=== PATIENT | male | born 1965 | race Caucasian/White ===

== ENCOUNTER 2016-09-19 07:59 | Observation (INO) | payer BC ==
--- NOTE | 2016-09-19 08:41 | RAD ---
Indication: Chest pain, fever. Nonsmoker. Comparison: June 16, 2016 Technique: Upright AP 0812 hours Report: Clear lungs and pleural spaces. Negative for pneumothorax. The heart, pulmonary vasculature, and mediastinal contours are unremarkable. Unremarkable osseous structures and soft tissue contours. IMPRESSION: No evidence for acute intrathoracic disease.
[2016-09-19] MEDS ORDERED: Nitroglycerin TAB 0.4 MG* 0.4 MG TAB SL ONE (09:08)
[2016-09-19] MEDS ORDERED: Aspirin Low Dose CHEW TAB* 81 MG PO ONE (09:08)
[2016-09-19] MEDS ORDERED: Ondansetron INJ* 2 MG/ML VIAL IV ONE ×2 (09:09→10:57)
[2016-09-19] MEDS ORDERED: NS 0.9% 1000 ML* 1,000 ML IV ONE (09:09)
[2016-09-19 09:16] LABS: Hematocrit 42 % (42-52); Hemoglobin 14.2 g/dl (14.0-18.0); Mean Corpuscular HGB Conc 34 g/dl (31-36); Mean Corpuscular Hemoglobin 32 pg (27-31); Mean Corpuscular Volume 92 fL (80-94); Mean Platelet Volume 8 um3 (7.4-10.4); Red Blood Count 4.51 10^6/ul (4.0-5.4); Red Cell Distribution Width 13 % (10.5-15); White Blood Count 7.5 10^3/ul (3.5-10.8)
[2016-09-19 09:21] LABS: Add Diff/Slide Review? Slide Review Added; Comments Flag Yes
[2016-09-19 09:26] LABS: Albumin 3.7 g/dL (3.2-5.2); BUN/Creatinine Ratio 16.5 (8-20); Calcium 8.4 mg/dL (8.6-10.3); EGFR African American 92.1 (>60); EGFR Non-African American 71.6 (>60); Globulin 2.5 g/dL (2-4); Magnesium 1.7 mg/dL (1.9-2.7); Total Bilirubin 0.7 mg/dL (0.2-1.0); Total Protein 6.2 g/dL (6.4-8.9)
[2016-09-19 09:28] LABS: Potassium 3.6 mmol/L (3.5-5.0)
[2016-09-19 09:58] LABS: T4 6.84 mcg/mL (6.09-12.23)
[2016-09-19] MEDS ORDERED: Magnesium Sulfate 1 GM IV* 1 GM/100 ML BAG IV ONE ×2 (09:58→15:00)
[2016-09-19 09:59] LABS: TSH (Thyroid Stimulating Horm) 2.18 mcIU/mL (0.34-5.60)
[2016-09-19 10:40] LABS: Troponin I 0.01 ng/mL (<0.04)
[2016-09-19] MEDS ORDERED: Ondansetron INJ* 2 MG/ML VIAL ONE (10:55)
[2016-09-19 11:00] LABS: Urine Bilirubin Negative (Negative); Urine Glucose Negative (Negative); Urine Nitrite Negative (Negative)
[2016-09-19] MEDS ORDERED: Pantoprazole IV* 40 MG IV ONE (11:00)
[2016-09-19] MEDS ORDERED: Iohexol 350* (CONTRAST) 500 ML MDV IV ONE (11:09)
[2016-09-19 11:24] LABS: Troponin I 0.01 ng/mL (<0.04)
--- NOTE | 2016-09-19 11:40 | RAD ---
HISTORY: Shortness of breath, nausea and vomiting COMPARISONS: None TECHNIQUE: Multiple contiguous axial CT scans of the chest were obtained after the administration of nonionic intravenous contrast, timed to the pulmonary arterial phase of contrast enhancement.. Coronal and sagittal multiplanar reformations are also submitted for review. FINDINGS: NECK AND THYROID: The lower neck and thyroid are unremarkable. CHEST WALL: There is no lower cervical, axillary, or supraclavicular lymphadenopathy by size criteria. HEART AND PERICARDIUM: The heart is unremarkable. AORTA AND PULMONARY VASCULATURE: There is no pulmonary arterial filling defect to suggest pulmonary embolism. There is no linear filling defect within the aorta to suggest aortic dissection. MEDIASTINUM: There is no mediastinal lymphadenopathy by size criteria. JIM: There is no hilar lymphadenopathy by size criteria. AIRWAY AND ESOPHAGUS: The airway is unremarkable, without endobronchial filling defect. The esophagus is grossly normal. LUNG PARENCHYMA: The lungs are clear. PLEURA: No pleural abnormalities are noted. UPPER ABDOMEN: The upper abdomen is unremarkable. BONES AND SOFT TISSUES: No bone or soft tissue abnormalities are noted. OTHER: None. IMPRESSION: NO PULMONARY ARTERIAL FILLING DEFECTS TO SUGGEST PULMONARY EMBOLISM
[2016-09-19] MEDS ORDERED: Perflutren Lipid Microsphere* 3 ML VIAL ONE (11:56)
[2016-09-19] MEDS ORDERED: fentaNYL* 50 MCG/ML 2 ML VIAL (100 MCG VIAL) ONE (12:40)
[2016-09-19] MEDS ORDERED: Midazolam* 1 MG/ML 5 ML VIAL (5 MG) ONE (12:40)
[2016-09-19] MEDS ORDERED: Iohexol 350 (CONTRAST) 200 ML MDV IV ONE (12:40)
[2016-09-19] MEDS ORDERED: Heparin 2 UNITS/ML IVPREMIX* 3,000 ML IV ONE (12:40)
[2016-09-19] MEDS ORDERED: Lidocaine 1% INJ* 10 MG/ML 30 ML SDV ONE (12:40)
--- NOTE | 2016-09-19 12:48 | ED ---
Main Wilkins Auryana, scribed for Thuan Vicente MD on 09/19/16 at 0913 . HPI Chest Pain - HPI Summary HPI Summary: 51 year old male BIBA with chest pain and nausea starting at 04:30 this morning. The chest pain is located on the lower right side of the chest. He reports that he also feels disoriented, and en route was lightheaded and vomited. BASE REMOVER NTG. States SOB - reports normal for him. He reports that he did drink alcohol last night - 8x vodka cranberry. He denies any syncope, adominal pain, any chest pain currently, or any diarrhea (but states that it is not normal BM). PMHx is significant for GERD, COPD, bronchiectasis, asthma, and Sjogrens syndrome. - History of Current Complaint Chief Complaint: EDAbdPain Time Seen by Provider: 09/19/16 08:01 Onset/Duration: Started Hours Ago - at 04:30, Still Present Time of Onset: 04:30 Timing: Constant Initial Severity: Mild Current Severity: None Pain Intensity: 0 - reports no CP on arrival Pain Scale Used: 0-10 Numeric Chest Pain Location: Discrete at: - lower right chest Alleviating Factor(s): NTG 123 - 1 NTG EN ROUTE BASE REMOVER Associated Signs and Symptoms: Positive: Shortness of Breath - normal per patient, Lightheadedness, Vomiting, Other: - disoriented, no diarrhea - but reports that BM wasn't normal. Negative: Chest Pain - NONE CURRENTLY, Syncope, Fever, Abdominal Pain - Allergy/Home Medications Allergies/Adverse Reactions: Allergies Allergy/AdvReac Type Severity Reaction Status Date / Time No Known Allergies Allergy Verified 10/06/15 15:00 Home Medications: Home Medications Benzonatate CAP* [Tessalon 100 MG CAP*] 100 mg PO TID 09/19/16 [History Confirmed 09/19/16] Budesonide/Formote 160/4.5(NF) [Symbicort 160/4.5 (NF)] 2 puff INH BID 09/19/16 [History Confirmed 09/19/16] Cholecalciferol [Vitamin D] 5,000 unit PO DAILY 09/19/16 [History Confirmed ] Esomeprazole(NF) [NexIUM(NF)] 40 mg PO DAILY 09/19/16 [History Confirmed ] azaTHIOprine TAB(*) [Imuran TAB(*)] 50 mg PO DAILY 09/19/16 [History Confirmed 09/19/16] predniSONE TAB* [Deltasone TAB*] 20 mg PO DAILY 09/19/16 [History Confirmed ] PMH/Surg Hx/FS Hx/Imm Hx Previously Healthy: No - sjogrens Respiratory History: Reports: Hx Asthma, Hx Chronic Obstructive Pulmonary Disease (COPD), Other Respiratory Problems/Disorders - bronchiectasis GI History: Reports: Hx Gastroesophageal Reflux Disease Infectious Disease History: No Infectious Disease History: Denies: Traveled Outside the [place] in Last 30 Days - Family History Known Family History: Positive: Other - fibromyalgia and cancer - Social History Occupation: Employed Full-time Lives: Alone Alcohol Use: Occasionally Alcohol Amount: 8x cocktails Substance Use Type: Reports: None Hx Tobacco Use: Yes Review of Systems Positive: Other - DISORIENTED, LIGHTHEADEDNESS. Negative: Fever Eyes: Negative ENT: Negative Positive: Chest Pain Positive: Shortness Of Breath Positive: Vomiting - X1 Genitourinary: Negative Musculoskeletal: Negative Skin: Negative Neurological: Negative Psychological: Normal All Other Systems Reviewed And Are Negative: Yes Physical Exam - Summary Physical Exam Summary: VITAL SIGNS: Reviewed. GENERAL: ~Patient is a well developed and nourished male who is lying comfortable in the stretcher. ~Patient is not in any acute respiratory distress. HEAD AND FACE: No signs of trauma. ~No ecchymosis, hematomas or skull depressions. No sinus tenderness. EYES: PERRLA, EOMI x 2, No injected conjunctiva, no nystagmus. EARS: Hearing grossly intact. Ear canals and tympanic membranes are within normal limits. MOUTH: Oropharynx within normal limits. NECK: Supple, trachea is midline, no adenopathy, no JVD, no carotid bruit, no c- spine tenderness, neck with full ROM. CHEST: Symmetric, no tenderness at palpation LUNGS: Clear to auscultation bilaterally. No wheezing or crackles. CVS: Regular rate and rhythm, S1 and S2 present, no murmurs or gallops appreciated. ABDOMEN: Soft, non-tender. No signs of distention. No rebound no guarding, and no masses palpated. Bowel sounds are normal. EXTREMITIES: FROM in all major joints, no edema, no cyanosis or clubbing. NEURO: Alert and oriented x 3. No acute neurological deficits. Speech is normal and follows commands. SKIN: clammy and warm Triage Information Reviewed: Yes Vital Signs On Initial Exam: Initial Vitals Temp Pulse Resp BP Pulse Ox 98.5 F 92 21 139/90 95 09/19/16 07:59 09/19/16 07:59 09/19/16 07:59 09/19/16 07:59 09/19/16 07:59 Vital Signs Reviewed: Yes Diagnostics - Vital Signs Vital Signs Temp Pulse Resp BP Pulse Ox 09/19/16 08:30 88 20 144/75 96 09/19/16 08:11 86 18 150/78 96 09/19/16 08:05 91 17 95 09/19/16 08:01 98.5 F 83 19 139/90 95 09/19/16 07:59 98.5 F 92 21 139/90 95 - Laboratory Lab Results: Lab Results 09/19/16 Range/Units 08:26 INR (Anticoag Therapy) 0.86 L (0.89-1.11) Result Diagrams: 09/19/16 09:05 09/19/16 08:26 Lab Statement: Any lab studies that have been ordered have been reviewed, and results considered in the medical decision making process. - Radiology CXR Xray Interpretation: No Acute Changes Radiology Interpretation Completed By: Radiologist - CT CHEST/THORAX CTA CT Interpretation: No Acute Changes - IMPRESSION: NO PULMONARY ARTERIAL FILLING DEFECTS TO SUGGEST PULMONARY EMBOLISM CT Interpretation Completed By: Radiologist - EKG 07:56 EKG Interpretation: NSR @ 84 BPM, NO ST ELEVATION 09:01 EKG Interpretation: NSR @ 89 BPM, NO ST ELEVATION 11:01 EKG Interpretation: sinus tachycardia @103 BPM, unchanged from previous 2 EKGs Chest Pain Course/Dx - Course Course Of Treatment: 51 year old male BIBA with chest pain and nausea starting at 04:30 this morning. The chest pain is located on the lower right side of the chest. He reports that he also feels disoriented, and en route was lightheaded and vomited. BASE REMOVER NTG. States SOB - reports normal for him. He reports that he did drink alcohol last night - 8x vodka cranberry. He denies any syncope, adominal pain, any chest pain currently, or any diarrhea (but states that it is not normal BM). PMHx is significant for GERD, COPD, bronchiectasis, asthma, and Sjogrens syndrome. Assessment/Plan: Test results WNL except: lactic 2.1, calcium 8.4, Mg 1.7, troponin #1 0.01, troponin #2 0.01. UA is negative for U.T.I. Chest CT: IMPRESSION: NO PULMONARY ARTERIAL FILLING DEFECTS TO SUGGEST PULMONARY EMBOLISM. CXR: NAD. EKG: overall EKG similar but no ST. Ischemia in the lateral leads, ii, ii, aVf, V4, V5, V6. In the EMS course, patient came in having NTG and CP subsided. He does not complain of any CP since arrival. He does not complain of SOB, worse than his usual. However, I decided to do a chest CT to r/o PE, because has comorbidity of sjogrens and bronchiectasis. The chest CT did not show a PE, therefore since the patient is still having N/V and occasionally becomes clammy and diaphoretic, I discussed case with Dr. Oleary from cardiology. He did a bedside echo and thinks patient has hypo- kinesis of the ventricle. At this point - he decided to take the patient to the bed laborer. Patient is still hemodynamically stable and A&O x3. - Chest Pain Differential Diagnosis/HQI/PQRI: Acute CA, ACS, Angina, CHF, Chest Wall, GI Disease, Pulmonary Edema, Pulmonary Embolism - Diagnoses Provider Diagnoses: Ventricular hypokinesis, Vomiting, Chest pain - Provider Notifications Discussed Care Of Patient With: DR. OLEARY Time Discussed With Above Provider: 11:10 - recommends an Echocardiogram and agrees that there is no ST elevations - then admission to cardiac bed laborer Discharge - Discharge Plan Condition: Stable Disposition: ADMITTED TO [facility] Referrals: Bonifacio Wilson DO [Primary Care Provider] - The documentation as recorded by the Main lópez Auryana accurately reflects the service I personally performed and the decisions made by me, Thuan Vicente MD.
[2016-09-19] MEDS ORDERED: NS 0.9% 1000 ML* 1,000 ML IV SCH ×2 (13:15→15:50)
--- NOTE | 2016-09-19 13:29 | ECHO ---
Patient: SANTIAGO CABA [facility] Rec#: [id number] : 1965 Date: 09/19/2016 Age: 51y Height: 172.72 cm / 68.0 in Weight: 74.84 kg / 164.9 lbs Sex: M BSA: 1.88 Room#: [facility] Admit Date#: 09/19/2016 Type: Inpatient Referring: Christian Oleary MD Reading: Christian Oleary MD Electric Stove Installer: Nikki Mcbride KHOI CC: Lewis Mata MD Transthoracic Echocardiogram Indication: CP BP: 136/74 HR: 102 Rhythm: Tachycardia Findings History: Sjogren's,GERD,bronchiectasis,COPD. Technical Comments: The study is technically limited due to the patient's history of COPD. Completed at 1246. Left Ventricle: The left ventricular chamber size is normal. There is normal left ventricular systolic function.Overall pood endocardial images even with echo enhancement. Possible lateral wall hypokinesis The estimated ejection fraction is 50-55%. Left Atrium: The left atrial chamber size is normal. Right Ventricle: The right ventricular cavity size is normal. Right Atrium: The right atrial cavity size is normal. Aortic Valve: The aortic valve structure is not well visualized. Mitral Valve: The mitral valve structure is not well visualized. Tricuspid Valve: The tricuspid valve structure is not well visualized. Pulmonic Valve: The pulmonic valve structure is not well visualized. Pericardium: A left pleural effusion is present. There is a moderate pleural effusion. Aorta: There is no dilatation of the ascending aorta. The aortic arch is not well visualized. There is no dilation of the aortic root. Pulmonary Artery: The main pulmonary artery is not well visualized. Venous: The venous system is not well visualized. Contrast: Intravenous contrast was used to enhance endocardial border definition.6 ml utilized. Conclusions The left ventricular chamber size is normal. There is normal left ventricular systolic function.Overall pood endocardial images even with echo enhancement. Possible lateral wall hypokinesis The estimated ejection fraction is 50-55%. The right ventricular cavity size is normal. A left pleural effusion is present. There is no dilatation of the ascending aorta. Measurements Name Value Normal Range RVIDd (AP) 2D 2.7 cm (0.9 - 2.6) IVSd (2D) 0.8 cm (0.6 - 1) LVPWd (2D) 0.8 cm (0.6 - 1) LVIDd (2D) 3.1 cm (3.6 - 5.4) LVIDs (2D) 1.8 cm - LV FS (2D) 42 % (25 - 45) Aortic Annulus 0.8 cm (1.4 - 2.6) Ao root diameter (2D) 3.1 cm (2.1 - 3.5) Ascending Ao 2.9 cm (2.1 - 3.4) Name Value Normal Range PV Vmax 1.1 m/sec - PV peak gradient 4.65 mmHg -
[2016-09-19] MEDS ORDERED: Acetaminophen TAB* 325 MG PO ONE (13:30)
[2016-09-19] MEDS ORDERED: Acetaminophen TAB* 325 MG ONE (13:31)
[2016-09-19] MEDS ORDERED: NS 0.9% 1000 ML* 2,000 ML IV ONE (13:52)
[2016-09-19] MEDS ORDERED: Ondansetron INJ* 2 MG/ML VIAL IV PRN (13:52)
[2016-09-19] MEDS ORDERED: Albuterol 2.5 MG/3 ML NEB.SOL* (0.083%) INH PRN (14:20)
[2016-09-19] MEDS ORDERED: LORazepam TAB(*) 1 MG PO SCH (15:00)
[2016-09-19] MEDS: Hydrocortisone INJ* 100 MG VIAL IV SCH ×2 (15:04→21:45)
[2016-09-19] MEDS: KCL 10 MEQ/50 ML IVPREMIX* 10 MEQ/50 ML BAG IV SCH ×3 (15:05→20:25)
--- NOTE | 2016-09-19 15:21 | RAD ---
HISTORY: Fever, nausea and vomiting COMPARISONS: Same day CT of the chest that partially includes the right upper quadrant TECHNIQUE: Multiple transverse and longitudinal ultrasound images were obtained of the right upper quadrant. FINDINGS: LIVER: The liver exhibits homogenous increased echogenicity. The liver is top normal measuring up to 19 cm in greatest dimension. There are no suspicious lesions or masses. Normal hepatic and portal venous blood flow is duplicated with color flow imaging. There is no gross intrahepatic biliary duct dilatation. GALLBLADDER AND EXTRAHEPATIC BILIARY DUCT: The gallbladder is normal in appearance without intraluminal stones or other soft tissue masses. There is no pericholecystic fluid or gallbladder wall thickening. The common bile duct measures a maximum diameter of 4 mm. PANCREAS: The portions of the pancreas not obscured by bowel gas are normal in appearance. RIGHT KIDNEY: The right kidney is normal in size, morphology and echogenicity. AORTA AND IVC: The visualized proximal portions are normal in appearance and not pathologically dilated. IMPRESSION: 1. NO SONOGRAPHIC EVIDENCE OF ACUTE CHOLECYSTITIS OR BILIARY OBSTRUCTION. 2. HOMOGENOUS INCREASED ECHOGENICITY LIVER COULD BE SEEN WITH HEPATIC STEATOSIS OR OTHER INFILTRATIVE DISEASE.
--- NOTE | 2016-09-19 15:34 | CONS ---
CARDIOLOGY CONSULTATION: DATE OF CONSULT: 09/19/16. INDICATION FOR CONSULTATION: Chest pain, nausea, and abnormal EKG. HISTORY OF PRESENT ILLNESS: The patient is a 51-year-old gentleman with a history of Sjogren's syndrome. He is on chronic immune suppressive medications. The patient states that he was feeling well yesterday. However, this morning he woke up and was feeling short of breath and nauseous. He says "I just have an overwhelming sense of unwellness." The patient says he is anxious. He just does not feel right. He has some mild chest pain, but mostly his complaint is nausea. The patient came to the emergency room with these complaints. His initial EKG shows normal sinus rhythm with diffuse T-wave inversions in leads 2, 3, aVF, V4 through V6. No clear evidence of ST segment elevation. The patient underwent a CT angiogram of his chest. There is no evidence of pulmonary embolism. No evidence of consolidation in his lungs. The patient had an echocardiogram with poor images. The images were enhanced with definity, which showed a suggestion of a lateral wall hypokinesis. Again, the images were not well visualized. There is no significant valvular abnormalities. Because of his acute presentation, abnormal EKG, and suggestions of lateral wall ischemia, it is my recommendation the patient undergo cardiac catheterization. PAST MEDICAL HISTORY: Significant for Sjogren's syndrome. PAST SURGICAL HISTORY: None. OUTPATIENT MEDICATIONS: 1. Prednisone 20 mg a day. 2. Omeprazole 40 mg a day. 3. Tessalon tablets 100 mg 3 times a day. 4. Imuran 50 mg a day. 5. Symbicort inhaler. 6. Vitamin D. ALLERGIES: No known drug allergies. SOCIAL HISTORY: He is not . He denies tobacco or alcohol use. He does not get regular exercise. The patient was scheduled to go to [facility] for a lung biopsy for further evaluation of his Sjogren's syndrome. PHYSICAL EXAM: Vital Signs: Height is 5 feet 10 inches, weight is 165 pounds, blood pressure 128/73, heart rate is 107, oxygen saturation 99% on 3 L. Temperature initially was 98.5, it is currently 101.2. Sclerae anicteric. Oropharynx is pink without erythema. Carotids are 2+ without bruits. JVD is normal. Thyroid is normal. Cardiac exam, S1 and S2 without any murmurs, rubs, or gallops. Lungs are clear to auscultation bilaterally. No dullness to percussion. Abdomen is soft, nontender, nondistended with normal active bowel sounds. Extremities show no edema. He has 2+ pulses throughout. The patient is awake, alert, and oriented. He moves all 4 extremities equally. DIAGNOSTIC STUDIES/LAB DATA: CBC within normal limits. Chemistry is within normal limits. Initial troponin 0.01, second troponin 0.01. Potassium level 3.6, BUN 18, creatinine 1.09, TSH 2.18. IMPRESSION: This is a 51-year-old gentleman with a history of Sjogren's syndrome who presents with nausea, chest pain, and shortness of breath. His EKG shows diffuse T-wave inversions, which could be secondary to LVH. An echocardiogram today is very difficult to interpret, even with definity there is a suggestion of hypokinesis to the lateral wall, although it was not well visualized. Because of his acute presentation and markedly abnormal EKGs by recommendation, the patient will go to cardiac catheterization for definitive evaluation of his coronary arteries. The patient is willing to proceed. Risks and benefits were described in detail. CC: Dr. Mata* [id number]/[facility] #: [id number] TAMIA
[2016-09-19 15:36] LABS: Hematocrit 37 % (42-52); Hemoglobin 12.4 g/dl (14.0-18.0); Mean Corpuscular HGB Conc 34 g/dl (31-36); Mean Corpuscular Hemoglobin 32 pg (27-31); Mean Corpuscular Volume 93 fL (80-94); Mean Platelet Volume 8 um3 (7.4-10.4); Red Blood Count 3.94 10^6/ul (4.0-5.4); Red Cell Distribution Width 13 % (10.5-15); White Blood Count 5.5 10^3/ul (3.5-10.8)
[2016-09-19] MEDS: Acetaminophen TAB* 325 MG PO PRN ×2 (15:43→20:12)
[2016-09-19 16:05] LABS: EGFR African American 104.1 (>60)
[2016-09-19] MEDS: Heparin VIAL(*) 5000 UNITS/ML VIAL (FIVE THOUSAND) SUBCUT SCH ×2 (19:51→21:40)
--- NOTE | 2016-09-19 20:06 | CONSULT ---
Consult Consult: Mr. Dickson is a 51 year old man recently diagnosed with Sjogren's Syndrome and started on Imuran 50mg daily as a steroid sparing medication. He was admitted with chest pain and nausea; his symptoms have resolved. He may be having GI side effects of Imuran; per my discussion with ER attending today, it is being held. Would like to review all records. Will follow and check serologies.
[2016-09-19] MEDS: Mometasone/Formoter 200/5 MDI INH SCH (20:39)
--- NOTE | 2016-09-19 23:05 | RAD ---
CLINICAL HISTORY: Abdominal pain COMPARISON: None TECHNIQUE: Noncontrast CT examination of the abdomen and pelvis from the lung bases through the initial tuberosities. FINDINGS: VISUALIZED LUNG BASES: The visualized lung bases are grossly clear. There is no pleural effusion. ABDOMEN AND PELVIS: Evaluation of the solid organs and vasculature is limited without intravenous contrast. The liver, spleen, pancreas and adrenal glands are grossly normal in appearance. The gallbladder is normal. The kidneys are normal in appearance without focal mass, calcification or signs of hydronephrosis. The small and large bowel are not distended.The patient's normal appendix is identified in the right lower quadrant measuring 6 mm in diameter with a small amount of gas in the lumen (coronal image 57). There are rectosigmoid diverticula but the colon does not exhibit any acute inflammatory changes or pericolonic infiltration. There is no gross retroperitoneal or mesenteric lymphadenopathy. The pelvic viscera is normal in appearance. Bilateral fat-containing inguinal hernias are noted. The abdominal aorta and iliac arteries are normal in course and diameter. Degenerative changes include multilevel loss of intervertebral disc height involving the lower thoracic and lumbar spine.There are no sinister bone lesions. IMPRESSION: 1. Diverticulosis without acute inflammatory changes of the colon within the limitations of a noncontrast CT examination. 2. Additional chronic and degenerative changes described in body the report unlikely to BE related to the patient's indication for this CT.
--- NOTE | 2016-09-19 23:49 | HP ---
HISTORY AND PHYSICAL: DATE OF ADMISSION: 09/19/16 PRIMARY CARE PROVIDER: Lewis Mata MD CONSULTING AUTOMATIC DRY STARCH OPERATOR: Ivan Lopez MD CONSULTING INFECTIOUS DISEASE SPECIALIST: Jed Brush MD ATTENDING PHYSICIAN WHILE IN THE HOSPITAL: Marcus Lopez MD * (report dictated by Kale Mejia NP). CHIEF COMPLAINT: Not feeling well. HISTORY OF PRESENT ILLNESS: Mr. Dickson is a 51-year-old male patient, who has a working diagnosis in the outpatient setting of Sjogren disease disorder. 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 About a week ago, he was started on Imuran and for the last month, has been on a high dose of prednisone at 20 mg a day. He comes in today, he says the last night he drank more than what he normally does. He woke up at 4 a.m., he felt chills. He had 4 bowel movements within 20 minutes that were loose in nature. He says that he felt nauseous. He felt weak and tired. He felt little drowsy. He was not feeling himself. He says that yesterday, he felt well and denied having any runny nose, sore throat, cough, or any fevers that he knew of. He says that he just was not feeling well. He was not feeling himself. He was feeling little drowsy, so he decided to get in his car and come to the hospital. While in the car, he started getting confused. He was not really sure if he could make it. He said he was feeling again pretty sleepy and tired , so he pulled off on to the side of the road and called 911. He was brought into the ER ultimately with an ambulance. While in the ambulance, he had an episode where he was vomiting. He thinks that he may have passed out. He does not recall the event happened while he was vomiting. He says that he had a episode of right-sided chest pain and discomfort, so he decided to come into the hospital. He says that to his knowledge, he did not have any fevers. He says that he also has been noticing over the last week since taking the Imuran that he gets pain, particularly after taking the Imuran in his belly, he feels bloated, he feels distended. He says the pain is mostly in the epigastric area. He denies any pain currently, he just says he feels tired. He denies having any neck pain and he denies having any headaches recently. He says that he has been bringing up some green sputum at times after using a Neti Pot. He also did admit to having sexual relations with a male partner about 4 days ago, who is known HIV positive. He came into the ER, he was evaluated. He had an EKG that showed changes and there was concern, so he ultimately had a CTA, which was negative and he also had a heart catheterization, which was negative as well as for any obstructive coronary artery disease per verbal report. However, post cath, it was noted that he had a fever of 103 and we were asked to evaluate for admission. PAST MEDICAL HISTORY: Significant for: 1. COPD. 2. Asthma. 3. Sjogren. 4. GERD. 5. Bronchiectasis. 6. Peptic ulcer disease. PAST SURGICAL HISTORY: He had a cardiac catheterization today, but prior to this, he has not had any surgery. HOME MEDICATIONS: According to the list include: 1. Vitamin D 5000 units p.o. daily. 2. Prednisone 20 mg daily. 3. Nexium 40 mg daily. 4. Tessalon 100 mg p.o. t.i.d. 5. Imuran 50 mg p.o. daily. 6. Symbicort 2 puffs inhaled b.i.d. ALLERGIES TO MEDICATIONS: Include no known drug allergies. FAMILY HISTORY: His mother has a history of fibromyalgia and lupus. Father had a history of cancer. SOCIAL HISTORY: He is bisexual. He does drink 3 to 4 beers daily. He denied recreational drug abuse to me or smoking. Surrogate decision maker will be his mother. REVIEW OF SYSTEMS: There is documented fever now. He does admit to having chills. He does admit to having weight change of about 20 pounds he has gained over the last month. There is no double vision. He denies having any ear discharge. No rhinorrhea. No sore throat. No thyroid enlargement. He denies having any abdominal pain. He does admit to having an episode of nausea, vomiting, and diarrhea. He denies having any dysuria. He denied having any chest pain currently, he did have some on the way. There was a loss of consciousness. No pruritus. No skin ulcerations. Review of 14 systems completed. All others negative. PHYSICAL EXAMINATION GENERAL: At this time, Mr. Dickson is a 51-year-old male patient. He does not appear to be in any acute distress. He is sitting in the post cath stretcher. VITAL SIGNS: Reveal blood pressure 128/73, pulse of 107, respirations 17, O2 sat 94%, his temperature again in the post cath area was 103.1, it was not documented yet. HEENT: Head atraumatic and normocephalic. Eyes: EOMs are intact. Sclerae anicteric and not pale. Throat: Oral mucosa appeared to be dry. No oropharyngeal erythema. NECK: Supple. LUNGS: Clear to auscultation. No wheezes, rales, or rhonchi. HEART: Sounds S1, S2. Regular rate and rhythm. No murmurs, rubs, or gallops. ABDOMEN: Soft, it was mildly distended, it was tender in the epigastric area. Bowel sounds present. EXTREMITIES: Pulses were 2+ throughout. Again, no peripheral edema. The right groin was covered with the dressing and it was clean, dry and intact. NEUROLOGIC: He is awake, alert, oriented x3. His tongue is midline. [place] were equal. He had no gross focal deficits. SKIN: Intact with the exception there is a dressing to the right groin from a puncture site from the heart cath which was clean, dry and intact. DIAGNOSTIC STUDIES/LAB DATA: Labs today revealed a WBC of 7.5, RBC of 4.51, hemoglobin of 14.2, hematocrit of 42, and platelet count of 154. The INR was 0.86. Sodium was 138, potassium was 3.6, chloride of 102, bicarb 24, BUN 18, creatinine 1.09, glucose 97, lactic was 2.1, calcium 8.4, mag 1.7. Total bili 0.7, AST 18, ALT 20, alk phos 42. His CK was 37. His CK-MB 1.6. His troponin was 0, repeat troponin 0, albumin of 3.7. Amylase and lipase pending. TSH was normal. Urine was negative. He did have a chest thorax CTA, which revealed no pulmonary artery filling defects to suggest PE. He had several EKGs, most recently at 11 o'clock this morning, showed a sinus tachycardia with a rate of 103. He had ST depression noted in leads II, III and aVF and T-wave inversions in V5 and V6 along with II, III and aVF. When we reviewed that to the EKG done earlier in the morning, that is similar with the exception that the rate is faster now. He did have a chest x-ray obtained, which revealed no evidence of acute intrathoracic disease. He had an echocardiogram obtained today, which showed an EF of 50% to 55% and there was possible lateral wall hypokinesis. Again, heart catheterization was performed and again per verbal report from Dr. Oleary, there was no obstructive coronary lesions. Old medical records were reviewed. ASSESSMENT AND PLAN: Mr. Dickson is a 51-year-old male patient coming into the ER today, again with complaints of weakness, also having episode of syncope, nausea , vomiting, and diarrhea, and chest discomfort. Post catheterization today, he was noted to have fever of 103. We were asked to evaluate for admission. He will be admitted under inpatient status for: 1. Fever. Etiology is unclear. He has certainly been on Imuran, which can cause fever, it also can cause nausea, vomiting and abdominal discomfort and weakness according to the side effects on this medication. I will have Dr. Lopez evaluate the patient, although; however, he is immunocompromised. The patient is on Imuran and he has been on prednisone for a month. I think it is pertinent to go ahead and panculture him. I am checking amylase and lipase because of the vomiting and pain after eating meals. In addition to this, I would like to get a CT of the abdomen and pelvis without contrast. He has already had 2 dye loads today, so I am holding off. I also would like to get an ultrasound of the abdomen as well, get blood cultures and check a fluid swab. In addition to this, I am also going to check him for HIV and we will get a viral load and we will have Dr. Brush evaluate the patient. In the meantime, I going to give him 2 L fluid wide open and normal saline at 150, his EF is preserved. In addition to this, hold on antibiotics until a source is obvious. Obviously, if he decompensates, I will put him on broad- spectrum antibiotics. I am going to hold at this point until we know for sure what we are treating and I will continue to follow and monitor him closely. I am also checking a procalcitonin. 2. ETOH use. Again, he does states that he drinks on a daily basis and then last night he drank quite heavily, so I am going to put him on the [facility] protocol. We will replace the mag and the potassium as those were both on the low sides. 3. Lactic acidosis. Etiology is unclear. Certainly, it could be dehydration, he was 2.1, normal was 2. I am going to repeat this to make sure it is not trending up. If this is trending up, I would have a low threshold to go ahead and just put him on antibiotics. 4. History of Sjogren. Again, I am going to hold the Imuran as this can be certainly culprit of this. We will put him on stress dosed steroids in the setting of acute illness. He has been on prednisone 20 mg daily for the last month and again Dr. Lopez will be evaluating the patient and will continue to follow. I am going to try to get the records from his primary tank welder if possible. 5. Asthma and chronic obstructive pulmonary disease. We will continue p.r.n. albuterol and continue his Symbicort. 6. Bronchiectasis. Continue meds as prescribed. 7. Gastroesophageal reflux disease and peptic ulcer disease. Continue PPI therapy. Certainly, this could be the culprit of his abdominal pain, but it does not explain that fever, so again we will try to work this up. 8. DVT prophylaxis. He is high risk, he will be placed on heparin subcu. 9. Code status. Full code. 10. Fluid, electrolytes, and nutrition. Clear liquid diet. TIME SPENT: Time spent on this admission was approximately 70 minutes, greater than half the time was spent in [id number] with the patient, obtaining my history of physical; the other half time was spent going over the plan of care with the patient and implementing plan of care. I did discuss the plan of care with my attending, Dr. Lopez; he is in agreement. KALE MEJIA NP CC: Lewis Mata MD; Ivan Lopez MD; Jed Brush MD * [id number]/[facility] #: [id number] TAMIA
--- NOTE | 2016-09-20 04:07 | CONS ---
CONSULTATION REPORT: DATE OF CONSULT: 09/19/16 REASON FOR CONSULTATION: Evaluate for Sjogren syndrome and possible Imuran toxicity. HISTORY OF PRESENT ILLNESS: Mr. Dickson is a 51-year-old male with a newly diagnosed history of Sjogren syndrome. He has been on azathioprine which was recently added around the of this month. Prior to that he has been on chronic steroids. His primary manifestation has been a pulmonary one and I have been requesting outside records to verify and confirm his prior workup. He has been on chronic steroids for his symptoms and it was felt serologically that he had Sjogren syndrome. As noted above, he has been on chronic steroids and azathioprine was recently added to his regimen. He was admitted with feeling of nausea and of note he noted that when he took the azathioprine which is 50 mg daily, he also had recurrent nausea. He also complained of chest pain and abdominal discomfort. He had an angiogram of the chest which showed no evidence of pulmonary embolism with no consolidation. An echo suggested lateral wall hypokinesis. He underwent cardiac catheterization with Cardiology. An abdominal sonogram was also done which showed homogenous increased echogenicity of the liver and he had an abdominal pelvic CT, the results of which are pending. He currently feels well, but he reports that he did drink some alcohol the night prior to this admission. He currently denies any syncope, abdominal pain and denies any chest pain currently. He was given nitroglycerin en route. He does have chronic shortness of breath which has improved in the past with corticosteroids. In terms of his prior pulmonary evaluation, I do have notes from Dr. Newman who he saw in November 2014. He was felt at that time to have asthma as a cause of his shortness of breath. However , symptomatically he is very limited from his chronic shortness of breath. He is not able to even mow the lawn effectively or do regular activities because of the shortness of breath. 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 He has also had episodes in the past of syncope and presyncope, especially when exhaling in pulmonary function test devices. Of note, an ultrasound of the abdomen showed hepatic steatosis. In terms of his Sjogren syndrome, he has otherwise had some mildly dry eyes and dry mouth, but again his primary manifestation of Sjogren's has been the pulmonary involvement. PAST MEDICAL HISTORY: Includes: 1. Allergic rhinitis. 2. Gastroesophageal reflux disease. 3. Reactive airway disease. MEDICATIONS: Prior meds included: 1. Montelukast 10 mg daily. 2. Advair Diskus. 3. Omeprazole. ALLERGIES: No known drug allergies. FAMILY HISTORY: Notable for his maternal grandmother with heart disease. Maternal grandfather healthy, in his 90s. Maternal grandmother and grandfather . Father of cancer. Mother has fibromyalgia. He has one brother with asthma and one healthy brother and one healthy sister. 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 He consumes 2 cups of coffee daily and he exercises very rarely. He is very limited because of his pulmonary complaints. Alcohol, occasionally consumes alcohol and he had some vodka on the night prior to admission as noted above. REVIEW OF SYSTEMS: In terms of review of systems, he denies change in appetite or sleep disorder. Denies weight changes or weight loss. ENT: He does have a history of sinus congestion but not recently. He does have dry mouth but no difficulty swallowing. Cardiovascular: He does have a history of chronic shortness of breath but he currently denies angina. He does have poor exercise intolerance. Respiratory: He does have a history of reactive airway disease, but denies any history of asbestos exposure. No recent upper respiratory infection. GI: Does have a history of acid reflux, but no recent change in appetite, constipation or diarrhea. : Denies any blood in the urine or stool. Musculoskeletal: He has occasional diffuse migratory polyarthralgias, but they are mild. Neurologic: He occasionally has some pins and needle sensation in the lower extremity, but this is mild and intermittent. Skin: He denies any skin changes. No new rash and no hair loss. Lymph: No lymph node swelling. Psychiatric: History of some anxiety but none currently. Hematologic : Denies any lymph node swelling. PHYSICAL EXAM: His vital signs, he had a pulse of 88 in the ER with a blood pressure 144/75 and pulse ox of 96%. General: He is pleasant, in no acute distress, sitting up. HEENT: No signs of trauma. No sinus tenderness. Eyes: Pupils equal, round and reactive to light accommodate. Extraocular movements were intact. Ears were normal. Mouth: Oropharynx was within normal limits. Neck was supple. Lymph: No adenopathy. Vascular: No JVP elevation. No carotid bruits. Musculoskeletal: No cervical spine tenderness. Neck with full range of motion. Lungs were clear to auscultation bilaterally. Chest was normal and symmetric with good expansion. No wheezing or crackles. Cardiovascular exam revealed a regular rate and rhythm. Normal S1, and S2. No murmurs, rubs or gallops. Abdomen: Soft, nontender, nondistended. No hepatosplenomegaly. Bowel sounds were positive. Extremities: Full range of motion. No edema, cyanosis or clubbing. Neurologic: Alert and oriented x3. No focal neurologic deficits. Skin was warm and normal and he had normal sensation and no dysesthesias. DIAGNOSTIC STUDIES/LAB DATA: He had a creatinine of 1.09, hemoglobin of 14.2, white count of 7.5, INR 0.86. Chest CT showed no pulmonary arterial defects. ASSESSMENT: 1. This a 51-year-old male with a recent diagnosis of Sjogren's and a longstanding history of asthma or reactive airway disease. He was recently started on azathioprine as a steroid sparing medication. I have requested old records for evaluation. He has had some possible gastrointestinal side effects of Imuran. At this point, I agree with holding this medication. I will be curious to see if he has had thiopurine methyltransferase (as abnormalities in this genetic assay may predict side effects from Imuran) checked and this could be checked again if not already done. In regards to his pulmonary complaints from a rheumatologic perspective, I will check his antinuclear antibody and if not already checked, check sclerodermal antibodies as well too. He does not seem to have scleroderma on exam, but if he has a scleroderma type picture which his CT does not reveal at this time, then I am wondering if CellCept may be a good alternative medication as a steroid sparing medication if he is unable to tolerate Imuran. I would also consider checking an ANCA. We should continue to avoid these immunosuppressive meds until he is improved from his acute event. 2. Chest pain. He has recently had a cardiac catheterization. 3. Asthma. Continue inhalers. 4. Nausea. Continue ondansetron as necessary. 5. History of lymphopenia, maybe secondary to history of steroid use. Would also check a B12 given his mild anemia. 6. Diverticulosis: found on CT scan; he will likely need a follow up with GI. I will continue to follow daily. [id number]/[facility] #: [id number] TAMIA
[2016-09-20 04:40] LABS: Hematocrit 37 % (42-52); Hemoglobin 12.5 g/dl (14.0-18.0); Mean Corpuscular HGB Conc 34 g/dl (31-36); Mean Corpuscular Hemoglobin 32 pg (27-31); Mean Corpuscular Volume 93 fL (80-94); Mean Platelet Volume 8 um3 (7.4-10.4); Red Blood Count 3.93 10^6/ul (4.0-5.4); Red Cell Distribution Width 13 % (10.5-15)
[2016-09-20 04:53] LABS: BUN/Creatinine Ratio 11.7 (8-20); Calcium 8.4 mg/dL (8.6-10.3); EGFR African American 109.2 (>60); EGFR Non-African American 84.9 (>60); Potassium 3.8 mmol/L (3.5-5.0)
[2016-09-20] MEDS: Heparin VIAL(*) 5000 UNITS/ML VIAL (FIVE THOUSAND) SUBCUT SCH ×3 (05:20→21:17)
[2016-09-20] MEDS: Hydrocortisone INJ* 100 MG VIAL IV SCH ×2 (05:21→13:32)
[2016-09-20] MEDS: Acetaminophen TAB* 325 MG PO PRN (05:27)
[2016-09-20] MEDS: Mometasone/Formoter 200/5 MDI INH SCH ×2 (08:39→20:35)
--- NOTE | 2016-09-20 08:45 | CATH ---
CARDIAC CATHETERIZATION NOTE: DATE OF PROCEDURE: 09/19/16 - ROOM #[id number] INDICATION FOR PROCEDURE: Acute coronary syndrome, chest pain, abnormal EKG. PROCEDURE: Cardiac catheterization including coronary angiography. HISTORY: The patient is a 51-year-old gentleman with a history of Sjogren's syndrome and chronic inflammation who presented to the emergency room with nausea, chest discomfort and severe diaphoresis. The patient's initial EKG demonstrated normal sinus rhythm with T-wave inversions in leads 2, 3, aVF with ST segment depressions in the lateral lead. There were no EKGs for comparison. His first troponin level is unremarkable. However, the patient continued to have chest pain and diaphoresis with general signs of feeling poorly. An echocardiogram showed poor echo images despite echo enhancement. There was a hint of hypokinesis to the lateral wall. Cardiac catheterization was recommended because of a possible acute coronary syndrome. DESCRIPTION OF PROCEDURE: The patient was brought to the cardiac catheterization lab in a fasting state. Informed consent had been obtained prior to the procedure. All labs were reviewed. The patient was placed supine on the catheterization table. Both femoral areas were cleaned and draped in the usual fashion. 1% lidocaine was used for local anesthesia. The right femoral artery was entered by a modified Seldinger technique and a 6-Jamaican sheath introducer was placed. The patient underwent coronary angiography using a 6-Jamaican JL4 catheter, 6-Jamaican JR4 catheter. At the end of the procedure, all sheaths and caths were removed. The patient tolerated the procedure well with no complications. A total of 45 minutes of Omnipaque dye was used. A total of 0.8 minutes of fluoro time was used. FINDINGS: CORONARY ARTERIES: 1. Left main artery. Left main was normal in size. It trifurcated into the LAD, ramus artery and circumflex artery. There was no evidence of stenosis. 2. Left anterior descending artery. The LAD was normal in size. It gave off two diagonal vessels. There was no evidence of stenosis. 3. Ramus artery. The ramus artery was a moderate-size vessel. There was no evidence of stenosis. 4. Left circumflex artery. The circumflex artery was normal in size. It gave off three obtuse marginal branches. There was no evidence of stenosis. 5. Right coronary artery. The RCA is a large dominant vessel. It gave off the PDA. There was no evidence of stenosis. IMPRESSION: Normal coronary arteries. RECOMMENDATIONS: The patient will be observed for ongoing medical issues. CC: Dr. Mata. * [id number]/[facility] #: [id number] MTDD
--- NOTE | 2016-09-20 08:54 | PN ---
Subjective Date of Service: 09/20/16 Interval History: Patient seen and examined at bedside. He had a fever last evening but denies any acute complaints this morning, including fever/chills, CP, SOB, n/v. He feels better and is hopeful to go home today or tomorrow. Family History: Unchanged from Admission Social History: Unchanged from Admission Past Medical History: Unchanged from Admission Objective Active Medications: Acetaminophen (Tylenol Tab*) 650 mg PO Q4H PRN PRN Reason: FEVER/PAIN Last Admin: 09/20/16 05:27 Dose: 650 mg Albuterol (Ventolin 2.5 Mg/3 Ml Neb.Rolanda*) 2.5 mg INH Q2H PRN PRN Reason: SOB/WHEEZING Folic Acid (Folvite Tab*) 1 mg PO DAILY [facility] Heparin Sodium (Porcine) (Heparin Vial(*)) 5,000 units SUBCUT Q8HR [facility] Last Admin: 09/20/16 05:20 Dose: 5,000 units Hydrocortisone Sodium Succinate (Solu-Cortef*) 100 mg IV Q8H [facility] Last Admin: 09/20/16 05:21 Dose: 100 mg Lorazepam (Ativan Tab(*)) 0 mg PO .PER WAM SCORE [facility] PRN Reason: Protocol Mometasone Furoate/Formoterol Fumar (Dulera 200/5 Mdi*) 2 puff INH BID [facility] PRN Reason: Protocol Last Admin: 09/20/16 08:39 Dose: 2 puff Multivitamins/Minerals (Theragran/Minerals Tab*) 1 tab PO DAILY [facility] Omeprazole (Prilosec Cap*) 20 mg PO DAILY@0730 [facility] PRN Reason: Protocol Ondansetron HCl (Zofran Inj*) 4 mg IV Q6H PRN PRN Reason: NAUSEA Thiamine HCl (Vitamin B-1 Tab*) 100 mg PO DAILY [facility] Vital Signs 09/19/16 09/19/16 09/19/16 14:40 16:01 19:00 Temperature 103.7 F 100.4 F Pulse Rate 99 95 Respiratory 18 20 20 Rate Blood Pressure 110/67 124/72 (mmHg) O2 Sat by Pulse 92 95 Oximetry 09/19/16 09/19/16 09/19/16 19:59 20:42 23:00 Temperature 98.5 F Pulse Rate 69 95 Respiratory 20 12 16 Rate Blood Pressure 121/64 (mmHg) O2 Sat by Pulse 94 95 Oximetry 09/19/16 09/20/16 09/20/16 23:57 00:00 01:00 Temperature 98.0 F Pulse Rate 64 Respiratory 16 16 Rate Blood Pressure 115/66 (mmHg) O2 Sat by Pulse 96 96 Oximetry 09/20/16 09/20/16 09/20/16 02:23 03:00 03:15 Temperature 98.3 F Pulse Rate 52 Respiratory 16 16 Rate Blood Pressure 110/65 (mmHg) O2 Sat by Pulse 95 98 Oximetry 09/20/16 09/20/16 05:00 08:41 Temperature Pulse Rate 64 Respiratory 16 12 Rate Blood Pressure (mmHg) O2 Sat by Pulse 98 Oximetry Oxygen Devices in Use Now: None Appearance: Young male, sitting up in bed, in NAD Eyes: PERRLA Ears/Nose/Mouth/Throat: Mucous Membranes Moist Neck: NL Appearance and Movements; NL JVP Respiratory: Symmetrical Chest Expansion and Respiratory Effort, Clear to Auscultation Cardiovascular: NL Sounds; No Murmurs; No JVD, RRR Abdominal: NL Sounds; No Tenderness; No Distention Extremities: No Edema, - - right groin cath site c/d/i Neurological: Alert and Oriented x 3, NL Muscle Strength and Tone Lines/Tubes/Other Access: Clean, Dry and Intact Peripheral IV Nutrition: Taking PO's Result Diagrams: 09/20/16 04:30 09/20/16 04:30 Additional Lab and Data: Lab Results 09/19/16 Range/Units 08:26 INR (Anticoag Therapy) 0.86 L (0.89-1.11) Microbiology and Other Data: Microbiology 09/19/16 15:10 Influenza Types A,B Antigen ([facility]ONTRELL) - Final Nasal Specimen received for Influenza A/B Molecular testing Assess/Plan/Problems-Billing Assessment: Mr. Dickson is a 51 yo male with a PMH of Sjogren's syndrome, COPD, asthma, bronchiectasis, PUD, and GERD who presented to the ED on 09/19 with concern for chest pain and fever. - Patient Problems (1) Fever Code(s): R50.9 - FEVER, UNSPECIFIED Comment: Unclear etiology Rapid HIV negative and procalcitonin negative. Last fever was yesterday evening. Appreciate ID consult. No indication for antibiotics at this time. (2) Chest pain Code(s): R07.9 - CHEST PAIN, UNSPECIFIED Comment: Patient's echocardiogram was poor quality. Cardiac catheterization showed normal vessels. No further c/o chest pain/discomfort. (3) Syncope Code(s): R55 - SYNCOPE AND COLLAPSE Comment: Unclear if presyncope or syncope Etiology unclear, possibly dehydration/hypovolemia No arrhythmias or ectopy noted on telemetry. No further episodes while here in the hospital. (4) Nausea, vomiting, and diarrhea Code(s): R11.2 - NAUSEA WITH VOMITING, UNSPECIFIED; R19.7 - DIARRHEA, UNSPECIFIED Comment: Resolved May be secondary to GI adverse effects of Imuran, which is currently on hold. Appreciate rheumatology consult to help advise on medication changes. (5) Lactic acidosis Code(s): E87.2 - ACIDOSIS Comment: Resolved Suspect secondary to hypovolemia. (6) Sjogren's syndrome Code(s): M35.00 - SICCA SYNDROME, UNSPECIFIED Comment: Imuran on hold. Hydrocortisone discontinued. Resume prednisone tomorrow. Appreciate rheumatology consult. Continue outpatient follow-up with Dr. Pozo (records requested). (7) GERD (gastroesophageal reflux disease) Code(s): K21.9 - GASTRO-ESOPHAGEAL REFLUX DISEASE WITHOUT ESOPHAGITIS Comment : Continue omeprazole. (8) Alcohol abuse, daily use Code(s): F10.10 - ALCOHOL ABUSE, UNCOMPLICATED Comment: Not scoring on WAM Patient shows no signs of withdrawal, d/c WAM protocol. (9) DVT prophylaxis Code(s): KCT2718 - Comment: SQ heparin Status and Disposition: Inpatient admit. D/c to home when medically stable.
[2016-09-20] MEDS: Omeprazole CAP* 20 MG PO SCH (09:09)
[2016-09-20] MEDS: Multivitamins/Minerals TAB PO SCH (09:09)
[2016-09-20] MEDS: Folic Acid TAB* 1 MG PO SCH (09:09)
[2016-09-20] MEDS: Thiamine TAB* 100 MG TAB PO SCH (09:09)
--- NOTE | 2016-09-20 18:09 | PN ---
Subjective - Subjective History: Rheumatology follow up note Date 09/20/2016 Chief Complaint Sjogren's. Overall Mr. Dickson is feeling better. He denied any chest pain and denied significant nausea. He has had no high fevers. He is tolerating is diet well. He has chronic dyspnea which is largely unchanged. Imuran is being held. Active Problems: Active Problems Chest pain (Acute) R07.9 Patient's echocardiogram was poor quality. Cardiac catheterization showed normal vessels. No further c/o chest pain/discomfort. DVT prophylaxis (Acute) [id number] SQ heparin Fever (Acute) R50.9 Unclear etiology Rapid HIV negative and procalcitonin negative. Last fever was yesterday evening. Appreciate ID consult. No indication for antibiotics at this time. Lactic acidosis (Acute) E87.2 Resolved Suspect secondary to hypovolemia. Nausea, vomiting, and diarrhea (Acute) R11.2, R19.7 Resolved May be secondary to GI adverse effects of Imuran, which is currently on hold. Appreciate rheumatology consult to help advise on medication changes. Syncope (Acute) R55 Unclear if presyncope or syncope Etiology unclear, possibly dehydration/ hypovolemia No arrhythmias or ectopy noted on telemetry. No further episodes while here in the hospital. Alcohol abuse, daily use (Chronic) F10.10 Not scoring on WAM Patient shows no signs of withdrawal, d/c WAM protocol. COPD (chronic obstructive pulmonary disease) (Chronic) J44.9 GERD (gastroesophageal reflux disease) (Chronic) K21.9 Continue omeprazole. Sjogren's syndrome (Chronic) M35.00 Imuran on hold. Hydrocortisone discontinued. Resume prednisone tomorrow. Appreciate rheumatology consult. Continue outpatient follow-up with Dr. Pozo ( records requested). Current Medications: Current Medications Acetaminophen (Tylenol Tab*) 650 mg PO Q4H PRN PRN Reason: FEVER/PAIN Last Admin: 09/20/16 05:27 Dose: 650 mg Albuterol (Ventolin 2.5 Mg/3 Ml Neb.Rolanda*) 2.5 mg INH Q2H PRN PRN Reason: SOB/WHEEZING Folic Acid (Folvite Tab*) 1 mg PO DAILY [facility] Last Admin: 09/20/16 09:09 Dose: 1 mg Heparin Sodium (Porcine) (Heparin Vial(*)) 5,000 units SUBCUT Q8HR [facility] Last Admin: 09/20/16 13:31 Dose: 5,000 units Mometasone Furoate/Formoterol Fumar (Dulera 200/5 Mdi*) 2 puff INH BID [facility] PRN Reason: Protocol Last Admin: 09/20/16 08:39 Dose: 2 puff Multivitamins/Minerals (Theragran/Minerals Tab*) 1 tab PO DAILY [facility] Last Admin: 09/20/16 09:09 Dose: 1 tab Omeprazole (Prilosec Cap*) 20 mg PO DAILY@0730 [facility] PRN Reason: Protocol Last Admin: 09/20/16 09:09 Dose: 20 mg Ondansetron HCl (Zofran Inj*) 4 mg IV Q6H PRN PRN Reason: NAUSEA Prednisone (Deltasone Tab*) 20 mg PO DAILY WITH MEAL [facility] Thiamine HCl (Vitamin B-1 Tab*) 100 mg PO DAILY [facility] Last Admin: 09/20/16 09:09 Dose: 100 mg - Review of Systems Constitutional Symptoms: No: Weight Gain, Weight Loss, Weakness, Fever, Night Sweats, Unexplained Falls Dermatology: Normal: Yes HEENT: Yes Normal Eyes: Positive: Normal Thyroid: Positive: Normal Pulmonary: Positive: Shortness of Breath Cardiology: Positive: Normal Gastroenterology: Positive: Normal Musculoskeletal: Positive: Joint Pain, Joint Stiffness Endocrinology: Positive: Normal Hematologic/Lymphatic: Positive: Anemia Neurology: Positive: Normal Psychiatry: Positive: Normal Allergic/Immunologic: Positive: Immunocompromise Home Medications: Home Medications Medication Instructions Recorded Confirmed Type Benzonatate CAP* [Tessalon 100 MG 100 mg PO TID 09/19/16 09/19/16 History CAP*] Budesonide/Formote 160/4.5(NF) 2 puff INH BID 09/19/16 09/19/16 History [Symbicort 160/4.5 (NF)] Cholecalciferol [Vitamin D] 5,000 unit PO DAILY 09/19/16 09/19/16 History Esomeprazole(NF) [NexIUM(NF)] 40 mg PO DAILY 09/19/16 09/19/16 History azaTHIOprine TAB(*) [Imuran TAB(*)] 50 mg PO DAILY 09/19/16 09/19/16 History predniSONE TAB* [Deltasone TAB*] 20 mg PO DAILY 09/19/16 09/19/16 History Allergies: Allergies Allergy/AdvReac Type Severity Reaction Status Date / Time No Known Allergies Allergy Verified 10/06/15 15:00 Objective - Vital Signs Vital Signs: Vital Signs 09/19/16 09/19/16 09/19/16 19:00 19:59 20:42 Temperature 98.5 F Pulse Rate 69 95 Respiratory 20 20 12 Rate Blood Pressure 121/64 (mmHg) O2 Sat by Pulse 94 95 Oximetry 09/19/16 09/19/16 09/20/16 23:00 23:57 00:00 Temperature 98.0 F Pulse Rate 64 Respiratory 16 16 Rate Blood Pressure 115/66 (mmHg) O2 Sat by Pulse 96 96 Oximetry 09/20/16 09/20/16 09/20/16 01:00 02:23 03:00 Temperature Pulse Rate Respiratory 16 16 Rate Blood Pressure (mmHg) O2 Sat by Pulse 95 Oximetry 09/20/16 09/20/16 09/20/16 03:15 05:00 05:19 Temperature 98.3 F 98.5 F Pulse Rate 52 63 Respiratory 16 16 16 Rate Blood Pressure 110/65 135/73 (mmHg) O2 Sat by Pulse 98 97 Oximetry 09/20/16 09/20/16 09/20/16 08:01 08:41 11:14 Temperature 98.2 F 98.3 F Pulse Rate 58 64 75 Respiratory 16 12 16 Rate Blood Pressure 130/71 137/80 (mmHg) O2 Sat by Pulse 97 98 97 Oximetry 09/20/16 16:18 Temperature 98.5 F Pulse Rate 67 Respiratory 20 Rate Blood Pressure 133/72 (mmHg) O2 Sat by Pulse 98 Oximetry - Intake and Output Intake and Output: Intake & Output 09/18/16 09/19/16 09/20/16 09/21/16 06:59 06:59 06:59 06:59 Intake Total 6990 1480 Output Total 3950 0 Balance 3040 1480 Weight 168 lb 6.4 oz Intake: IV Fluids 6122 NS (0.9%) 2957 IVPB 218 NS (0.9%) 64 Oral 650 1480 Output: Urine 3950 0 Other: # Bowel Movements 0 Estimated Stool Amount Medium # Voids 1 ADLs: Meal Record Start: 09/19/16 13: 54 Freq: DAILY@0900,1400,1800 Status: Active Created 09/19/16 13:54 System (Rec: 09/19/16 13:54 System [id number]) Document 09/19/16 14:00 [id number] (Rec: 09/19/16 14:42 [id number] TELE-C03) Document 09/19/16 18:00 [id number] (Rec: 09/19/16 22:35 [id number] TELE-C01) Document 09/20/16 09:00 [id number] (Rec: 09/20/16 10:49 [id number] TELE-C10) Document 09/20/16 13:25 [id number] (Rec: 09/20/16 13:26 [id number] TELE-C01) Intake and Output Start: 09/19/16 08: 00 Freq: Status: Active Created 09/19/16 08:00 System (Rec: 09/19/16 08:00 System [id number]) Intake and Output Start: 09/19/16 13: 54 Freq: DAILY@0600,1400,2200 Status: Active Document 09/19/16 08:40 [id number] (Rec: 09/20/16 04:51 [id number] TELE-C03) Created 09/19/16 13:54 System (Rec: 09/19/16 13:54 System [email or web address]-C03) Document 09/19/16 15:41 [id number] (Rec: 09/19/16 15:41 [id number] MED-L06) Document 09/19/16 22:00 [id number] (Rec: 09/19/16 22:43 [id number] TELE-C01) Document 09/20/16 06:00 [id number] (Rec: 09/20/16 06:30 [id number] TELE-C35) Document 09/20/16 14:00 [id number] (Rec: 09/20/16 14:40 [id number] TELE-C11) - Physical Exam General Physical Exam Comment: No acute distress Eye Exam: bilateral: PERRLA Head: Yes Normocephalic Thyroid Function: Clinically Euthyroid Lungs and Chest: Yes: Chest Expansion Full, Chest Expansion Symetrica Heart Rate and Rhythm: Regular JVP: Not Elevated [place] Beat: Non Displaced Additional Cardiovascular: Yes: [place] Beat not Displaced, Normal Heart Sounds Abdominal Exam: Yes: Soft - Rheumotological System Joints: Range of Motion - Mild lateral hip restriction - Extremities Posterior Tibial Pulse: Bilateral Normal Dorsalis Pedis Pulses: Bilateral Normal Limbs: Normal Power Reflexes: Bilateral: Biceps - Neuro Psychiatric: Normal Speech: Normal Results - Results Lab Results: Laboratory Results - last 24 hr 09/19/16 09/20/16 09/20/16 20:58 04:30 04:30 WBC 4.0 RBC 3.93 L Hgb 12.5 L Hct 37 L MCV 93 MCH 32 H MCHC 34 RDW 13 Plt Count 154 MPV 8 Neut % (Auto) 77.8 Lymph % (Auto) 15.8 L [place] % (Auto) 6.1 Eos % (Auto) 0.1 Baso % (Auto) 0.2 Absolute Neuts (auto) 3.1 Absolute Lymphs (auto) 0.6 L Absolute Monos (auto) 0.2 Absolute Eos (auto) 0 Absolute Basos (auto) 0 Absolute Nucleated RBC 0 Nucleated RBC % 0 Sodium 137 Potassium 3.8 Chloride 106 Carbon Dioxide 27 Anion Gap 4 BUN 11 Creatinine 0.94 Est GFR ( Amer) 109.2 Est GFR (Non-Af Amer) 84.9 BUN/Creatinine Ratio 11.7 Glucose 119 H Calcium 8.4 L Vitamin B12 183 Assessment - Problem List Assessment: Patient Problems Chest pain (Acute) DVT prophylaxis (Acute) Fever (Acute) Lactic acidosis (Acute) Nausea, vomiting, and diarrhea (Acute) Syncope (Acute) Alcohol abuse, daily use (Chronic) COPD (chronic obstructive pulmonary disease) (Chronic) GERD (gastroesophageal reflux disease) (Chronic) Sjogren's syndrome (Chronic) Plan: Nausea: Improved. Imuran on indefinite hold. Sjogren's Overall stable; SCL70 pending. Chest pain : resolved; normal cath noted. Chronic dyspnea: may be related to Sjogren's; consider alternative steroid sparing medication, but we will wait until he medically recovers completely from this acute event. I would like also to review his old records. Mild hip discomfort: he attributes this to his mattress or to laying flat for 3 hours after cardiac cath; would follow. Once discharged, I would like to follow up with him in 1 or 2 weeks
[2016-09-21] MEDS: Heparin VIAL(*) 5000 UNITS/ML VIAL (FIVE THOUSAND) SUBCUT SCH (05:29)
[2016-09-21] MEDS: Thiamine TAB* 100 MG TAB PO SCH (07:41)
[2016-09-21] MEDS: Folic Acid TAB* 1 MG PO SCH (07:41)
[2016-09-21] MEDS: Omeprazole CAP* 20 MG PO SCH (07:41)
[2016-09-21] MEDS: Multivitamins/Minerals TAB PO SCH (07:41)
[2016-09-21] MEDS: Mometasone/Formoter 200/5 MDI INH SCH (08:02)
[2016-09-21 08:16] VITALS: BP 140/74
[2016-09-21] MEDS ORDERED: predniSONE TAB* 20 MG PO SCH ×2 (08:30)
--- NOTE | 2016-09-21 09:43 | CONS ---
CONSULTATION REPORT: DATE OF CONSULTATION: 09/20/16 REQUESTING PROVIDER: Kale Mejia NP. CONSULTING SERVICE: Infectious Disease. REASON FOR CONSULTATION: Fever, vomiting in an immunocompromised man. IMPRESSION: 1. 48 hours of fever, loose stools, vomiting, all resolving. He did have a fever last night of 39 degrees in the setting of recent Imuran therapy. The differential diagnosis includes Imuran reaction which has been evaluated for versus gastroenteritis including viral causes. HIV antibody was negative. Influenza PCR was negative. Blood cultures are pending. Overall, he has continued to improve without antibiotic therapy and I suspect does not have a bacterial pathogen. He may not be infected at all. 2. Ongoing sexual exposure with HIV positive partner and others of unknown HIV and other sexually transmitted infection status. HIV antibody was negative here. 3. Recent diagnosis of Sjogren's and started Imuran after prednisone therapy. Pending a lung biopsy. RECOMMENDATIONS: 1. Agree with holding antibiotics and follow his fever curve. 2. He has an HIV viral load that was sent and he will follow up with me for initiation of pre-exposure prophylaxis. HISTORY OF PRESENT ILLNESS: He is a 51-year-old man recently started on Imuran , admitted with sudden onset at 4 o'clock in the morning of Monday of fever and vomiting. He had felt well the night before, eaten normally throughout the weekend. He had vomiting and a few episodes of loose stools on the , so he came to the hospital that morning. His white blood cell count was 7. He was afebrile. He was admitted and then yesterday afternoon had a fever to 39.8 degrees. He has been off antibiotics either in the emergency department or in the hospital. White blood cell count is 4. He had a procalcitonin of 0.2 drawn yesterday afternoon. Influenza PCR was negative, HIV antibody negative, HIV viral load is pending. Blood cultures sent are pending. He is today eating well, has formed stools, no more vomiting and feels back to his usual self. He has sex with men and women. His partner is a man who has HIV who reports his HIV viral load is undetected. He has had other sexually transmitted infections in the past including hepatitis B, reports now that he is clear of the infection. Does not recall other sexually transmitted infections, though has been tested for gonorrhea, chlamydia, and syphilis in the past. He recently had insertive anal sex and receptive oral sex. PAST MEDICAL HISTORY: 1. Sjogren's disease. 2. COPD. 3. Asthma. 4. Gastroesophageal reflux disease. 5. Bronchiectasis. 6. Peptic ulcer disease. MEDICATIONS: 1. Tylenol. 2. Aspirin. 3. Folic acid. 4. Heparin subcutaneous injection. 5. Hydrocortisone 100 mg every 8 hours. 6. Pantoprazole. 7. Thiamine. ALLERGIES: No known drug allergies. FAMILY HISTORY: No recurrent infections. SOCIAL HISTORY: He lives in [place]. 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 He lives with partner and dog and cat in [place]. No sick contacts. No travel. REVIEW OF SYSTEMS: All negative except as noted above. PHYSICAL EXAM: Vital Signs: Temperature 37, heart rate 70, respiratory rate 16 , blood pressure 130/80, O2 sat 97% on room air. In general, he is awake, not in distress. Neurologic: He is oriented x3. Follows all commands. Moves all of his extremities. Cranial nerves II through XII are intact. HEENT: There is no conjunctival hemorrhage. Oropharynx without lesions. Neck is supple without nuchal rigidity. Lymph Nodes: There is no cervical, supraclavicular, inguinal, axillary, or epitrochlear lymphadenopathy. Heart has regular rate and rhythm without murmurs, rubs, or gallops. Lungs are clear to auscultation bilaterally. Abdomen: Soft, nontender, nondistended. There are bowel sounds present. There is no hepatosplenomegaly. Skin: There is no rash or splinter hemorrhages. Musculoskeletal: There is no spine tenderness to palpation or joint synovitis. LABORATORY DATA: White blood cell count 4, hemoglobin 12, platelets 154, MCV is 93. Creatinine 0.9. Urinalysis negative. Please see impressions and recommendations outlined above, which I have discussed with Elizabeth Espino NP. Thanks for asking me to see Mr. Dickson in consultation. [id number]/[facility] #: [id number] TAMIA
--- NOTE | 2016-09-21 10:05 | DCNOTE ---
Subjective Date of Service: 09/21/16 Interval History: Patient seen and examined at bedside. Denies dizziness, fever/chills, CP, SOB, abd pain, n/v/d, hip pain. Would like to go home. No acute concerns. Discussed importance of follow-up with PCP, Dr. Lopez, and Dr. Lynch. Patient in agreement. Family History: Unchanged from Admission Social History: Unchanged from Admission Past Medical History: Unchanged from Admission Objective Active Medications: Acetaminophen (Tylenol Tab*) 650 mg PO Q4H PRN PRN Reason: FEVER/PAIN Last Admin: 09/20/16 05:27 Dose: 650 mg Albuterol (Ventolin 2.5 Mg/3 Ml Neb.Rolanda*) 2.5 mg INH Q2H PRN PRN Reason: SOB/WHEEZING Folic Acid (Folvite Tab*) 1 mg PO DAILY [facility] Last Admin: 09/21/16 07:41 Dose: 1 mg Heparin Sodium (Porcine) (Heparin Vial(*)) 5,000 units SUBCUT Q8HR [facility] Last Admin: 09/21/16 05:29 Dose: 5,000 units Mometasone Furoate/Formoterol Fumar (Dulera 200/5 Mdi*) 2 puff INH BID [facility] PRN Reason: Protocol Last Admin: 09/21/16 08:02 Dose: 2 puff Multivitamins/Minerals (Theragran/Minerals Tab*) 1 tab PO DAILY [facility] Last Admin: 09/21/16 07:41 Dose: 1 tab Omeprazole (Prilosec Cap*) 20 mg PO DAILY@0730 [facility] PRN Reason: Protocol Last Admin: 09/21/16 07:41 Dose: 20 mg Ondansetron HCl (Zofran Inj*) 4 mg IV Q6H PRN PRN Reason: NAUSEA Prednisone (Deltasone Tab*) 20 mg PO DAILY WITH MEAL [facility] Last Admin: 09/21/16 07:41 Dose: 20 mg Thiamine HCl (Vitamin B-1 Tab*) 100 mg PO DAILY [facility] Last Admin: 09/21/16 07:41 Dose: 100 mg Vital Signs 09/20/16 09/20/16 09/20/16 11:14 16:18 20:03 Temperature 98.3 F 98.5 F 98.8 F Pulse Rate 75 67 67 Respiratory 16 20 20 Rate Blood Pressure 137/80 133/72 146/79 (mmHg) O2 Sat by Pulse 97 98 96 Oximetry 09/20/16 09/20/16 09/21/16 20:38 23:13 00:00 Temperature 98.0 F Pulse Rate 87 72 Respiratory 16 20 Rate Blood Pressure 136/72 (mmHg) O2 Sat by Pulse 97 97 97 Oximetry 09/21/16 09/21/16 09/21/16 04:09 08:02 08:03 Temperature 98.2 F 98.5 F Pulse Rate 60 58 89 Respiratory 20 24 12 Rate Blood Pressure 128/78 140/74 (mmHg) O2 Sat by Pulse 98 97 98 Oximetry Oxygen Devices in Use Now: None Appearance: Male patient, ambulating in room, NAD Eyes: PERRLA Ears/Nose/Mouth/Throat: Mucous Membranes Moist Neck: NL Appearance and Movements; NL JVP Respiratory: Symmetrical Chest Expansion and Respiratory Effort, Clear to Auscultation Cardiovascular: NL Sounds; No Murmurs; No JVD, RRR Abdominal: NL Sounds; No Tenderness; No Distention Extremities: No Edema Neurological: Alert and Oriented x 3, NL Muscle Strength and Tone Lines/Tubes/Other Access: Clean, Dry and Intact Peripheral IV Nutrition: Taking PO's Result Diagrams: 09/20/16 04:30 09/20/16 04:30 Additional Lab and Data: Lab Results 09/19/16 Range/Units 08:26 INR (Anticoag Therapy) 0.86 L (0.89-1.11) Microbiology and Other Data: Microbiology 09/19/16 15:10 Influenza Types A,B Antigen ([facility]RE[facility]) - Final Nasal Specimen received for Influenza A/B Molecular testing Assess/Plan/Problems-Billing Assessment: Mr. Dickson is a 51 yo male with a PMH of Sjogren's syndrome, COPD, asthma, bronchiectasis, PUD, and GERD who presented to the ED on 09/19 with concern for chest pain and fever. - Patient Problems (1) Fever Code(s): R50.9 - FEVER, UNSPECIFIED Comment: Unclear etiology, suspect Imuran reaction. Imuran discontinued, patient will continue on prednisone for Sjogren's and follow-up with Rheumatology. Rapid HIV negative and procalcitonin negative. Afebrile >24 hours. Appreciate ID consult. Patient will have outpatient ID follow-up for HIV exposure. No indication for antibiotics at this time. (2) Chest pain Code(s): R07.9 - CHEST PAIN, UNSPECIFIED Comment: Patient's echocardiogram was poor quality. Cardiac catheterization showed normal vessels. No further c/o chest pain/discomfort. (3) Syncope Code(s): R55 - SYNCOPE AND COLLAPSE Comment: Unclear if presyncope or syncope Etiology unclear, possibly dehydration/hypovolemia No arrhythmias or ectopy noted on telemetry. No further episodes while here in the hospital. (4) Nausea, vomiting, and diarrhea Code(s): R11.2 - NAUSEA WITH VOMITING, UNSPECIFIED; R19.7 - DIARRHEA, UNSPECIFIED Comment: Resolved May be secondary to GI adverse effects of Imuran, which has been discontinued. Outpatient rheumatology follow-up to start new steroid-sparing medication. (5) Lactic acidosis Code(s): E87.2 - ACIDOSIS Comment: Resolved Suspect secondary to hypovolemia. (6) Sjogren's syndrome Code(s): M35.00 - SICCA SYNDROME, UNSPECIFIED Comment: With lung involvement and chronic dyspnea Imuran discontinued secondary to adverse effects. Continue outpatient prednisone dosing. Appreciate rheumatology consult. Patient to f/u with Dr. Lopez in 1 week. Continue outpatient follow-up with Dr. Pozo (tradeshow worker). (7) GERD (gastroesophageal reflux disease) Code(s): K21.9 - GASTRO-ESOPHAGEAL REFLUX DISEASE WITHOUT ESOPHAGITIS Comment : Continue omeprazole. (8) DVT prophylaxis Code(s): IGK2709 - Comment: SQ heparin Status and Disposition: Inpatient admit. D/c to home.
--- NOTE | 2016-09-22 02:40 | DS ---
DISCHARGE SUMMARY: DATE OF ADMISSION: 09/19/16 DATE OF DISCHARGE: 09/21/16 PROVIDER: Matt Brennan NP. ATTENDING PHYSICIAN: Dr. Annette Zimmerman* (dictated by Matt Brennan NP.) CONSULTING JAVASCRIPT DEVELOPER: Ivan Lopez MD. CONSULTING INFECTIOUS DISEASE SPECIALIST: Jed Brush MD. CONSULTING INSIDE SALES: Christian Oleary MD PRIMARY CARE PROVIDER: Lewis Mata MD. PRIMARY RECONCILIATION MANAGER: Dr. Pozo [place]. PRIMARY DISCHARGE DIAGNOSES: 1. Fever, suspect secondary to Imuran. 2. Sjogren's syndrome. 3. Chest pain. 4. Nausea, vomiting, suspect secondary to Imuran. 5. Possible syncope or presyncope. MEDICATIONS AT DISCHARGE: 1. Cholecalciferol 5000 units daily. 2. Prednisone 20 mg daily. 3. Omeprazole 40 mg daily. 4. Benzonatate 100 mg t.i.d. 5. Symbicort 160/1.5 two puffs inhaled b.i.d. Medication that have been discontinued: Azathioprine 50 mg. HOSPITAL TESTING DURING THIS ADMISSION: Transthoracic echocardiogram. Conclusions: The left ventricular chamber size is normal. There is normal left ventricular systolic function. Overall, poor endocardial images even with echo enhancement. Possible lateral hypokinesis. The estimated ejection fraction is 50% to 55%. The right ventricular cavity size is normal. A left pleural effusion is present. There was no dilatation of the ascending aorta. Cardiac catheterization. Findings: Coronary arteries. 1. Left main artery. Left main was normal in size. It trifurcated into the LAD, ramus artery, and circumflex artery. There was no evidence of stenosis. 2. Left anterior descending artery. The LAD was normal in size. It gave off two diagonal vessels. There was no evidence of stenosis. 3. Ramus artery. The ramus artery was a moderate-size vessel. There was no evidence of stenosis. 4. Left circumflex artery. The circumflex artery was normal in size. It gave off three obtuse marginal branches. There was no evidence of stenosis. 5. Right coronary artery. The RCA is a large dominant vessel. It gave off the PDA. There was no evidence of stenosis. Impression: Normal coronary arteries. Recommendations: The patient will be observed for ongoing medical issues. No further cardiac followup unless indicated. Chest x-rays: No evidence for acute intrathoracic disease. CT of the abdomen and pelvis. Impression: Diverticulosis without acute involutory changes of the colon within the limitations of a noncontrast CT examination. Additional chronic changes described in the body of report and likely to be related to the patient's CT. Abdominal ultrasound. Impression: No sonographic evidence of acute cholecystitis or biliary obstruction. Homogenous increased echogenicity of the liver could be seen with hepatic steatosis or other infiltrative disease. HOSPITAL COURSE OF STAY: For full details, please refer to the H and P provided by Kale Mejia, nurse practitioner on 09/19/16. In summary, Mr. Dickson is a 51-year- old male patient with a working diagnosis of Sjogren's disease. He has been following with Dr. Pozo in [place] who is a radiator tester. The patient states that he started Imuran approximately one week ago and prior to that he has been on a high dose of prednisone at 20 mg a day. In the evening proceeding his admission, the patient states that he drank more alcohol than normal. He woke up with chills. He had multiple loose bowel movements. He reported weakness and drowsiness. He is unsure if he had an episode of syncope. He tried to drive, but he started to feel confused and unwell. He did call his EMS who brought him in to the hospital. In the hospital, the patient vomited, and again felt he may have passed out. The patient reports that with the Imuran that he has been noting that he gets pain particularly after taking the medication, often feels bloated and distended. In regards to his GI symptoms, the patient did have a CT and ultrasound which were previously mentioned. He was also seen in consultation by Dr. Lopez of Rheumatology. It is indicated that this may represent some adverse effect from the Imuran of a gastrointestinal nature. We did hold the medication; the patient had no further complaints or issues. The patient did also express some chest discomfort during his time in the ER. There was concern for ischemia. Given his EKG, he had a CTA which was negative and an echocardiogram which was rather inconclusive. The patient then underwent a heart catheterization, which was negative as well for any obstructive coronary artery disease. However, following the catheterization, the patient did have a noted fever of 103. ID was consulted. The patient had no further significant fevers. The etiology of the fever is still unclear. However, they may be secondary to the patient's Imuran immunosuppressive therapy. Again the patient had no further GI symptoms, which makes the gastroenteritis a less likely cause, although not completely out of the differential. We did screen the patient for HIV, because of the fact that he has had HIV exposure. His rapid results were negative. The patient's influenza PCR was also negative. His blood cultures have shown no significant growth so far. The patient's procalcitonin was negative and he has not had any further incidences. In regards to his HIV exposure, he is to follow up in the outpatient setting with Dr. Brush, his office will arrange this followup. In regards to the concern for syncope, the patient had no further episodes of this and he was maintained on telemetry, which was normal. During his stay, he has been ambulating without concern for dizziness or syncopal events. The patient is taking in p.o. fluids and food well. The patient was initially put on a [facility] protocol to evaluate for alcohol withdrawal but he did not score. On the day of discharge 09/21/16, the patient has been afebrile for over 36 hours. He has no acute concerns. At one point, he was complaining of right hip pain, which has since resolved. The patient does have chronic dyspnea and cough secondary to suspected Sjogren's. He states that this is at baseline. The patient has been continued on his prednisone and the Imuran has been discontinued. We discussed that the patient is to followup with Dr. Lopez. I did call and make an appointment for this followup for September 29. The patient will also followup with Dr. Brush whose office will call the patient for a followup appointment. The patient will also follow up with Dr. Mata. CONCERNS AT DISCHARGE: Mr. Dickson will be discharged home on 09/21/16 with appropriate followup as previously mentioned. FOLLOWUP: Outpatient Follow Needs: Scleroderma, ANCA, and ANTONY results were still pending. The patient will follow up on these results with Dr. Lopez. Blood cultures are still pending, but showed no growth thus far. DIET: The patient may resume a regular diet. ACTIVITY: As tolerated. CONDITION: Improved, stable. DISPOSITION: To home. TIME SPENT: Time spent on this discharge was 45 minutes. Again, this is only a brief summary of the patient's hospital course of stay. For full details, please refer to the full medical record. If you have any further questions or need further assistance, please feel free to contact me at . MATT BRENNAN NP CC: Dr. Mata; Dr. Lopez; Dr. Brush; Dr. Oleary; Dr. Pozo, [place]* [id number]/[facility] #: [id number] MTD
== END 2016-09-21 11:26 | disposition home or self-care (01) ==
LOC: ED 07:59 → MEDTELE 13:03
PROVIDERS: ADMIT Specialist; ATTEND Internal Medicine
DX: R07.9 Chest pain, unspecified (principal); R50.9 Fever, unspecified; R11.2 Nausea with vomiting, unspecified; R06.02 Shortness of breath; M35.00 Sjogren syndrome, unspecified; R10.9 Unspecified abdominal pain; R55 Syncope and collapse; K57.90 Diverticulosis of intestine, part unspecified, without perforation or abscess without bleeding; J44.9 Chronic obstructive pulmonary disease, unspecified; J45.909 Unspecified asthma, uncomplicated; J47.9 Bronchiectasis, uncomplicated; K21.9 Gastro-esophageal reflux disease without esophagitis; K27.7 Chronic peptic ulcer, site unspecified, without hemorrhage or perforation; D72.810 Lymphocytopenia; F10.10 Alcohol abuse, uncomplicated; E87.2 Acidosis; R19.7 Diarrhea, unspecified; J90 Pleural effusion, not elsewhere classified; K76.0 Fatty (change of) liver, not elsewhere classified; R00.0 Tachycardia, unspecified; R94.31 Abnormal electrocardiogram [ECG] [EKG]
CPT/HCPCS: 36415; 71010; 71275; 74176; 76705; 80048; 80053; 81003; 82150; 82550; 82553; 82565; 82607; 83516; 83605; 83690; 83735; 83874; 83880; 84145; 84436; 84443; 84484; 84520; 85025; 85610; 85730; 86038; 86235; 87040; 87086; 87389; 87502; 87536; 93005; 93308; 93454; 94640; 96365; 96366; 96367; 96372; 96375; 99285; A9270-GY; C1760; C1887; C8924; G0378; G0475; J1644; J1720; J2001; J2250; J2405; J3010; J3480; J7512; Q9967

== ENCOUNTER 2016-12-08 08:57 | Day surgery (SDC) | payer BC ==
--- NOTE | 2016-12-05 13:46 | HP ---
CC: Dr. Lopez, Rheumatology; Dr. Glaser, Urology; Dr. Pozo, Pulmonology, in [place] * ADMISSION HISTORY AND PHYSICAL: DATE OF ADMISSION: 12/08/16 ATTENDING SURGEON: Dr. Casper Sweeney. * (DICTATED BY PAM HAMMOND) CHIEF COMPLAINT: Right inguinal hernia. HISTORY OF PRESENT ILLNESS: This is a 51-year-old male with right inguinal hernia, first seen by Dr. Sweeney in September of 2015. At that time and since then, the patient had noted a right groin bulge with intermittent symptoms related to activity and his chronic cough. The hernia has increased somewhat in size since the initial diagnosis. He has not had any symptoms to suggest incarceration or strangulation. He was also noted on initial and subsequent exams to have a weakness on the left side as well. It was proposed that he undergo laparoscopic repair of both hernias. However, he was having significant cough at that time and undergoing workup. His workup led to a diagnosis of Sjogren's disease, and even though he is better managed at the present time, he nonetheless still has chronic cough and there were some concerns in terms of the impact of general anesthesia and endotracheal intubation. Therefore, Dr. Sweeney has recommended that he undergo open repair of the right inguinal hernia with mesh under local anesthesia with sedation. The patient understands the indications for surgery, the risks, benefits, and alternatives and he would like to proceed as scheduled with open repair of right inguinal hernia with mesh. He is not currently on any immunosuppressant maintenance medications. PAST MEDICAL HISTORY: Sjogren's disease, asthma, GERD, lumbar degenerative disk disease with chronic low back pain, history of diverticulosis and diverticulitis. He had a hospitalization for 2 to 3 days in August of this year that seemed to be largely related to side effects from Imuran at that time. He is since followed by Dr. Lopez. He has a prescription for Truvada, which he has not yet filled or used, indicated for high-risk bisexual behavior. He is treated for B12 deficiency anemia. PAST SURGICAL HISTORY: [place] teeth extraction. He has undergone EGD and colonoscopy in the past. CURRENT MEDICATIONS: 1. Truvada (not yet taking). 2. B12 1000 mcg subcutaneously q.2 weeks. 3. Esomeprazole 40 mg daily. 4. Montelukast 10 mg daily. 5. Spiriva 18 mcg 2 puffs daily. 6. Symbicort 160/4.5 mcg 2 puffs b.i.d. 7. Vitamin D3 5000 international units once daily. 8. Benzonatate 100 mg t.i.d. p.r.n. DRUG ALLERGIES: None known. FAMILY HISTORY: Negative for anesthesia problems, bleeding or clotting disorders. SOCIAL HISTORY: The patient currently lives with his partner. 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 He denies tobacco use. He drinks 3 to 4 drinks per day. He denies other recreational drug use. REVIEW OF SYSTEMS: General: No recent constitutional symptoms or acute illnesses other than described in the HPI and past medical history. His weight has been stable. Cardiovascular: No chest pain, palpitations, history of hypertension, or heart murmur. He did undergo echocardiogram and cardiac catheterization during his August admission (catheterization was normal, see separate reports). Respiratory: He is fairly well maintained in terms of symptomatology at present, though still does have some dyspnea with moderate exertion and a chronic dry cough. GI: GERD, controlled. No lower GI symptoms. No recent episodes of diverticulitis. : No problems reported other than some initial right testicular pain, for which he was seen by Dr. Glaser and subsequently referred to our office. Endocrine: No diabetes or thyroid dysfunction. PHYSICAL EXAMINATION GENERAL: Well-nourished, well-developed male in no acute distress. VITAL SIGNS: Height 5 feet 8 inches, weight 165 pounds, temperature 97.9, blood pressure 124/76, pulse 66, respirations 16. SKIN: Warm and dry. No suspicious rashes or lesions. HEENT: Pupils equal and round, reactive. EOMs intact. No conjunctival pallor. NECK: No lymphadenopathy in the cervical, supraclavicular, or axillary regions. No thyromegaly or masses. LUNGS: Clear to auscultation. No rales or wheezes. HEART: Regular rate and rhythm. No murmur noted. ABDOMEN: Soft, nontender to palpation. No palpable masses or organomegaly. Right inguinal hernia extends into the scrotum, but is soft and reducible per Dr. Sweeney's exam. Left side has an incipient hernia with a positive impulse on cough. BACK: No spinous process or CVA tenderness. EXTREMITIES: No edema. RECTAL: Not done. NEUROLOGIC: Grossly intact. IMPRESSION: Right inguinal hernia. PLAN: Open repair of right inguinal hernia with mesh. PAM HAMMOND [id number]/[facility] #: [id number] MTDD
[~2016-12-08 08:57] MED LIST: Buffered Lidocaine 0.9% SYRIN* 5 ML/SYR SYRINGE INTRADERM ONE; Famotidine IV* 10 MG/ML 2 ML (20 mg) IV ONE; Morphine INJ* 2 MG/ML 1 ML SYRINGE IV PRN; PROCHLORPERAZINE INJ 5 MG/ML 2 ML VIAL IV PRN; Scopolamine 1.5 mg* PATCH TRANSDERM PRN; fentaNYL* 50 MCG/ML 2 ML VIAL (100 MCG VIAL) IV PRN; oxyCODONE/Acetamin 5/325 MG* TAB PO PRN
[2016-12-08] MEDS ORDERED: Buffered Lidocaine 0.9% SYRIN* 5 ML/SYR SYRINGE ONE (09:09)
[2016-12-08] MEDS ORDERED: Famotidine IV* 10 MG/ML 2 ML (20 mg) ONE (09:09)
[2016-12-08] MEDS ORDERED: fentaNYL* 50 MCG/ML 2 ML VIAL (100 MCG VIAL) ONE (09:40)
[2016-12-08] MEDS ORDERED: Midazolam* 1 MG/ML 5 ML VIAL (5 MG) ONE (09:41)
[2016-12-08] MEDS ORDERED: KETAMINE HCL* 50 MG/ML 10 ML VIAL ONE (09:41)
[2016-12-08] MEDS ORDERED: Lidocaine 1% INJ* 10 MG/ML 30 ML SDV ONE (10:12)
[2016-12-08] MEDS ORDERED: Bupivacaine 0.5% W/EPI SDV* 10 ML VIAL INJ ONE (10:12)
[2016-12-08] MEDS ORDERED: Ondansetron INJ* 2 MG/ML VIAL ONE (11:10)
[2016-12-08] MEDS ORDERED: Propofol* 10 MG/ML 20 ML BTL IV PUSH ONE (11:10)
[2016-12-08] MEDS ORDERED: Ketorolac INJ* 30 MG/ML 1 ML VIAL ONE (11:10)
[2016-12-08] MEDS ORDERED: Lidocaine 2% PF * 5 ML VIAL ONE (11:10)
--- NOTE | 2016-12-08 11:11 | PN ---
Progress Note - Progress Note Date of Service: 12/08/16 Note: Brief Operative Note: Preop Dx: Right Inguinal Hernia Postop Dx: same, direct Procedure: open repair RIH w/ mesh (PHS) Anesthesia: local/MAC Surgeon: Zahra Asst: PAM Fox Fluids: 500 ml RL EBL: none Drains: none Specimen: none Findings: dictated
[2016-12-08] MEDS ORDERED: Labetalol IV* 5 MG/ML 20 ML VIAL ONE (11:57)
[2016-12-08 12:48] VITALS: BP 127/92
--- NOTE | 2016-12-08 23:54 | OP ---
CC: Bonifacio Wilson DO * DATE OF OPERATION: 12/08/16 - [facility] DATE OF : 67 SURGEON: Casper Sweeney MD AVIATION MAINTENANCE INSTRUCTOR: PAM Baez ANESTHESIOLOGIST: Dr. Gilliam. ANESTHESIA: LMAC anesthesia. PRE-OP DIAGNOSIS: Right inguinal hernia. POST-OP DIAGNOSIS: Right inguinal hernia. OPERATIVE PROCEDURE: Open repair of right inguinal hernia with mesh. DESCRIPTION OF PROCEDURE: The patient was supine on the operative table. After adequate intravenous sedation, compression stockings, Balbir Hugger warmer, and intravenous antibiotics, the right groin was clipped and prepped with antiseptic and draped in a sterile fashion. Local infiltrative anesthesia was administered. Approximately 2.5 inch incision was created, carried down to the tissue layers. External oblique was opened in the direction of its fibers. Cord structures were encircled with a Armington drain, tented upward. There was an obvious direct space hernia. There was no indirect space hernia. The direct space was opened at the transversalis fascia. The preperitoneal plane was developed and a Prolene hernia system PHSE patch was put into place. The internal leaf was placed into the preperitoneal plane. The external leaf was sutured at the tubercle at the transversus abdominis and at the inguinal ligament. Tails were split, brought around the cord structures and tacked down laterally. External oblique was closed over top with 2-0 Polysorb, Ken's with 3-0 Polysorb, skin with 4-0 Surgipro followed by a sterile dressing. He tolerated the procedure well and was awakened and brought to recovery in good condition. There are no complications. No drains. No pathologic specimens. Sponge and instrument counts correct. Estimated blood loss 10 mL. [id number]/[facility] #: [id number] [facility]
[2016-12-11] MEDS ORDERED: Scopolomine PATCH Remove* 1 NOTE MISC PATCH OFF ONE (05:53)
== END 2016-12-08 12:50 | disposition home or self-care (01) ==
LOC: OR 08:57
PROVIDERS: ATTEND Surgery
DX: K40.90 Unilateral inguinal hernia, without obstruction or gangrene, not specified as recurrent (principal); J44.9 Chronic obstructive pulmonary disease, unspecified; K21.9 Gastro-esophageal reflux disease without esophagitis
CPT/HCPCS: C1781; J1885; J2001; J2250; J2405; J2704; J3010

== ENCOUNTER 2017-07-03 14:40 | Emergency (ER) | payer BC ==
[2017-07-03] MEDS ORDERED: Albuterol/Ipratropium NEB.SOL* Albuterol 2.5 MG/Ipratropium 0.5 MG 3 ML INH ONE ×2 (14:44→14:54)
[2017-07-03] MEDS ORDERED: methylPREDNISolone 125 MG* 2 ML VIAL IM ONE (14:45)
--- NOTE | 2017-07-03 14:53 | ED ---
Respiratory - HPI Summary HPI Summary: Pt presents to reporting difficulty breathing and wheezing progressive x 3 days. Pt states has a h/o copd and lung scarring "they think is autoimmune." Pt has use sprivia and other resp meds - does not use Albuterol as "never seemed to help." Pt states has been coughing with productive white phlegm. no fevers, chills. States chest feels tight "like I can't take a deep breath" No rash, No new exposures. No known triggers. + sick contacts. no history of intubation/hospitalization. last prednisone > 1 year Pt's medications reviewed this visit. - History of Current Complaint Chief Complaint: UCRespiratory Stated Complaint: TROUBLE BREATHING, CONGESTION Time Seen by Provider: 07/03/17 14:44 Hx Obtained From: Patient Onset/Duration: Gradual Onset Timing: Constant Initial Severity: Mild Current Severity: Moderate Pain Intensity: 0 Character: Wheezing, Cough (Productive) - white Sputum Amount: Small Sputum Color: White, Yellow Aggravating Factor(s): URI Alleviating Factor(s): Nothing Associated Signs and Symptoms: URI, Wheezing - Allergy/Home Medications Allergies/Adverse Reactions: Allergies Allergy/AdvReac Type Severity Reaction Status Date / Time No Known Allergies Allergy Verified 07/03/17 14:48 Home Medications: Home Medications Hydroxychloroquine TAB* [Plaquenil TAB*] 2 tab DAILY 07/03/17 [History Confirmed 07/03/17] Tiotropium CAP.INH* [Spiriva CAP.INH*] 1 cap DAILY 07/03/17 [History Confirmed 07/03/17] PMH/Surg Hx/FS Hx/Imm Hx Previously Healthy: Yes Endocrine/Hematology History: Reports: Hx Anemia - hx of, unsure why vitamin b 12 Denies: Hx Diabetes Cardiovascular History: Denies: Hx Hypertension, Other Cardiovascular Problems/Disorders Respiratory History: Reports: Hx Asthma - will bring inhalers, Hx Chronic Obstructive Pulmonary Disease (COPD), Other Respiratory Problems/Disorders - bronchiectasis GI History: Reports: Hx Gastroesophageal Reflux Disease Denies: Other GI Disorders History: Denies: Hx Renal Disease Musculoskeletal History: Reports: Hx Arthritis - lumbar Sensory History: Denies: Hx Contacts or Glasses, Hx Hearing Aid Opthamlomology History: Denies: Hx Contacts or Glasses - Surgical History Hx Anesthesia Reactions: No Infectious Disease History: No Infectious Disease History: Denies: Traveled Outside the [place] in Last 30 Days - Family History Known Family History: Positive: Other - fibromyalgia and cancer - Social History Lives: With Family Alcohol Use: Weekly Alcohol Amount: 3-4 beers/day Substance Use Type: Reports: None Hx Tobacco Use: Yes Smoking Status (MU): Never Smoked Tobacco Review of Systems Positive: Fatigue Positive: Chest Pain - tightness from breathing Positive: Shortness Of Breath, Cough All Other Systems Reviewed And Are Negative: Yes Physical Exam Triage Information Reviewed: Yes Vital Signs On Initial Exam: Initial Vitals Temp Pulse Resp BP Pulse Ox 98.4 F 107 97 07/03/17 14:43 07/03/17 14:43 07/03/17 14:43 07/03/17 14:43 07/03/17 14:43 Vital Signs Reviewed: Yes Appearance: Positive: Well-Nourished Skin: Positive: Warm, Skin Color Reflects Adequate Perfusion, Dry Head/Face: Positive: Normal Head/Face Inspection Eyes: Positive: Normal, EOMI, MILLIE ENT: Positive: Normal ENT inspection, Hearing grossly normal, Pharynx normal Neck: Positive: Supple, Nontender, No Lymphadenopathy Respiratory/Lung Sounds: Positive: Other - tight BS throughout exp wheeze diffuse short sentence coarse cough mild accessory muscle use Cardiovascular: Positive: Normal, RRR Abdomen Description: Positive: Nontender Bowel Sounds: Positive: Present Musculoskeletal: Positive: Normal Neurological: Positive: Normal, Sensory/Motor Intact, Alert, Oriented to Person Place, Time Psychiatric: Positive: Normal AVPU Assessment: Alert - Marly Coma Scale Best Eye Response: 4 - Spontaneous Best Motor Response: 6 - Obeys Commands Best Verbal Response: 5 - Oriented Coma Scale Total: 15 Diagnostics - Vital Signs Vital Signs Temp Pulse Resp BP Pulse Ox 07/03/17 14:43 98.4 F 107 97 - Laboratory Diagnostic Studies Comment: COMPARISON: September 17, 2016. TECHNIQUE: PA and lateral dual-energy views were obtained. FINDINGS: Bones/Soft Tissues: There are no acute bony findings. Cardiomediastinal: The cardiomediastinal silhouette is normal. Lungs: There are no infiltrates. Pleura: There are no pleural effusions. Other: None. IMPRESSION: NO ACTIVE DISEASE. . <Electronically signed by Lewis De La Fuente MD in [place]> 07/03/17 1524. Dictated By: Lewis De La Fuente MD. Dictated Date/Time: 07/03/17 1524. Transcribed Date/Time: 07/03/17 1518. Copy to: Lab Statement: Any lab studies that have been ordered have been reviewed, and results considered in the medical decision making process. Re-Evaluation - Re-Evaluation First Eval Re-Evaluation Time: 14:56 Change: Improved Comment: Pt markedly improved following first neb. States chest tightness improved. Will check CXR and second neb Second Eval Re-Evaluation Time: 15:21 Change: Improved - Pt contineus to report feeling better following nebs. Will continue to follow with close reassessment Third Eval Re-Evaluation Time: 16:12 Comment: steroid 1 hours ago. Pt states continues to feel better. Still with intermittent coarse coug - states chest fullnes resolved. will check vitals and amb trial. no wheeze, accessory muscle use. If pt does well, d/c with pred , albuterol, abx and close f/u. If pt feels poor, will send to ED. 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 Pt with tight BS and wheeze throughout. Will treat aggressively with duoneb and IM solumedrol. If poor response, will send to ED. Pt comfortable and in agreement with plan - Diagnoses Provider Diagnoses: Acute bronchitis, COPD (chronic obstructive pulmonary disease) Discharge - Discharge Plan Condition: Stable Disposition: HOME Prescriptions: Albuterol HFA INHALER* [Ventolin HFA Inhaler*] 2 puff INH Q4H PRN #1 mdi PRN Reason: wheeze DOXYcycline CAP(*) [DOXYcycline 100MG CAP(*)] 100 mg PO BID #20 cap Inhaler, Assist Devices [Aerochamber Mv] 1 each MC Q4HR #1 spacer predniSONE TAB* [Deltasone TAB*] 50 mg PO DAILY #4 tab Patient Education Materials: Acute Bronchitis (ED), COPD (Chronic Obstructive Pulmonary Disease) (ED) Forms: *Gen. Provider Communication, *Work Release Referrals: [facility] PHYSICIAN REFERRAL [Outside] No Primary Care Phys,NOPCP [Medical Doctor] - Additional Instructions: - Take prednisone once daily as prescribed until gone - Take antibiotics as prescribed until gone - Use your inhaler - 2 puffs every 3 hours today and tomorrow, then as needed for wheezing - you should contact your specialist for a re-check this week. If your shortness of breath worsenes, chest tightness or other concerns you should contact 911 or go directly to the emergency department - Okay to take over the counter cough medications - humifidy the air in the room where you sleep - you have also been given the contact information for the physician referral center - this office will help you establish with a new primary care provider
--- NOTE | 2017-07-03 15:28 | RAD ---
INDICATION: Shoulder breath. Productive cough. COMPARISON: September 17, 2016 TECHNIQUE: PA and lateral dual-energy views were obtained. FINDINGS: Bones/Soft Tissues: There are no acute bony findings. Cardiomediastinal: The cardiomediastinal silhouette is normal. Lungs: There are no infiltrates. Pleura: There are no pleural effusions. Other: None IMPRESSION: NO ACTIVE DISEASE.
[2017-07-03 16:19] VITALS: BP 116/62
== END 2017-07-03 16:44 | disposition home or self-care (01) ==
LOC: UCCORT 14:40
DX: J20.9 Acute bronchitis, unspecified (principal); J44.9 Chronic obstructive pulmonary disease, unspecified
CPT/HCPCS: 71046; 96372; 99213; A9270-GY; G0463; J2930

== ENCOUNTER 2017-07-18 11:50 | Inpatient (IN) | payer BC ==
[2017-07-18] MEDS ORDERED: Albuterol/Ipratropium NEB.SOL* Albuterol 2.5 MG/Ipratropium 0.5 MG 3 ML INH ONE (12:13)
[2017-07-18] MEDS ORDERED: Diltiazem IV* 5 MG/ML 5 ML VIAL (for loading dose/IV Push) (25 MG) IV SLOW PU ONE (12:25)
[2017-07-18] MEDS: NS 0.9% 1000 ML* 2,000 ML IV ONE ×2 (12:26→17:19)
[2017-07-18 12:31] LABS: ABS Basophils 0.1 10^3/ul (0-0.2); ABS Eosinophils 0 10^3/ul (0-0.6); ABS Lymphocytes 0.7 10^3/ul (1.0-4.8); ABS Monocytes 1.2 10^3/ul (0-0.8); ABS Neutrophils 19.9 10^3/ul (1.5-7.7); ABS Nucleated RBC 0 10^3/ul; Eosinophil % 0 % (0-6); Lymphocyte % 3.3 % (25-47); Nucleated Red Blood Cells % 0
--- NOTE | 2017-07-18 12:37 | RAD ---
Indication: Productive cough, wheezing. Single frontal view of the chest performed at 1228 hours was reviewed. Comparison is made with previous exam dated July 03, 2017. No mediastinal shift is noted. Heart is of normal size and configuration. Lung alba appear clear. IMPRESSION: NO ACTIVE CARDIOPULMONARY DISEASE IS NOTED.
[2017-07-18] MEDS ORDERED: Diltiazem DRIP* 100 MG/100 ML ADDV.BAG IVPB ONE (12:43)
[2017-07-18 12:48] LABS: Hematocrit 46 % (42-52); Hemoglobin 15.8 g/dl (14.0-18.0); Mean Corpuscular HGB Conc 35 g/dl (31-36); Mean Corpuscular Hemoglobin 32 pg (27-31); Mean Corpuscular Volume 92 fL (80-94); Mean Platelet Volume 9 um3 (7.4-10.4); Platelet Count 264 10^3/ul (150-450); Red Blood Count 4.97 10^6/ul (4.0-5.4); Red Cell Distribution Width 12 % (10.5-15); White Blood Count 20.9 10^3/ul (3.5-10.8)
[2017-07-18 12:53] LABS: EGFR Non-African American 49.3 (>60)
[2017-07-18] MEDS ORDERED: Magnesium Sulfate 2 GM IV* 2 GM/50 ML BAG IVPB ONE (12:57)
[2017-07-18] MEDS ORDERED: Diltiazem IV VIAL* 125 MG in NS 0.9% 100 ML* 100 ML IV SCH ×2 (13:00→15:30)
[2017-07-18] MEDS ORDERED: Iodixanol* (CONTRAST) 320 MG/ML 100 ML SDV IV ONE ×2 (13:17→13:48)
--- NOTE | 2017-07-18 14:02 | RAD ---
HISTORY: Shortness of breath, tachycardia, positive d-dimer COMPARISONS: September 19, 2016 TECHNIQUE: Multiple contiguous axial CT scans of the chest were obtained after the administration of nonionic intravenous contrast, timed to the pulmonary arterial phase of contrast enhancement.. Coronal and sagittal multiplanar reformations are also submitted for review. FINDINGS: NECK AND THYROID: The lower neck and thyroid are unremarkable. CHEST WALL: There is no lower cervical, axillary, or supraclavicular lymphadenopathy by size criteria. HEART AND PERICARDIUM: The heart is unremarkable. AORTA AND PULMONARY VASCULATURE: There is no pulmonary arterial filling defect to suggest pulmonary embolism. There is no linear filling defect within the aorta to suggest aortic dissection. MEDIASTINUM: There is no mediastinal lymphadenopathy by size criteria. JIM: There is no hilar lymphadenopathy by size criteria. AIRWAY AND ESOPHAGUS: The airway is unremarkable, without endobronchial filling defect. The esophagus is grossly normal. LUNG PARENCHYMA: The lungs are clear. PLEURA: No pleural abnormalities are noted. UPPER ABDOMEN: There is fatty infiltration of liver. BONES AND SOFT TISSUES: No bone or soft tissue abnormalities are noted. OTHER: None. IMPRESSION: NO PULMONARY ARTERIAL FILLING DEFECT TO SUGGEST PULMONARY EMBOLISM.
[2017-07-18] MEDS ORDERED: Albuterol 2.5 MG/3 ML NEB.SOL* (0.083%) INH PRN (14:33)
[2017-07-18] MEDS ORDERED: Ondansetron INJ* 2 MG/ML VIAL IV PRN (14:33)
[2017-07-18] MEDS ORDERED: Heparin DRIP 25,000 UNITS(*) 25,000 UNITS/500 ML BAG IV SCH (14:45)
[2017-07-18] MEDS ORDERED: NS 0.9% 1000 ML* 1,000 ML IV SCH (14:45)
[2017-07-18] MEDS ORDERED: Potassium Chlor TAB* 20 MEQ TAB.ER PO ONE (14:58)
[2017-07-18] MEDS ORDERED: Albuterol/Ipratropium NEB.SOL* Albuterol 2.5 MG/Ipratropium 0.5 MG 3 ML INH SCH (15:00)
[2017-07-18] MEDS ORDERED: Azithromycin IV(*) 500 MG in D5W 250 ML BAG* 250 ML IVPB SCH (15:00)
[2017-07-18] MEDS ORDERED: cefTRIAXone VIAL(*) 1,000 MG in NS 0.9% 50 ML* 50 ML IVPB SCH (15:00)
[2017-07-18] MEDS ORDERED: Diltiazem DRIP* 100 MG/100 ML ADDV.BAG IVPB SCH (15:00)
[2017-07-18] MEDS ORDERED: Heparin VIAL(*) 5000 UNITS/ML VIAL (FIVE THOUSAND) IV PRN ×2 (15:01→16:00)
[2017-07-18] MEDS: predniSONE TAB* 20 MG PO SCH (16:07)
[2017-07-18] MEDS: Azithromycin IV(*) 500 MG in NS 0.9% 250 ML* 250 ML IVPB SCH (16:17)
--- NOTE | 2017-07-18 16:25 | ED ---
Cheikh Wilkins Stephanie, scribed for Lewis Owusu MD on 07/18/17 at 1221 . Shortness of Breath - HPI Summary HPI Summary: The pt is a 52 y/o M presenting to the ED with c/o SOB that began last night. Symptoms include cough that has been persistent for 3 weeks and diaphoresis. The pt has a hx of COPD. - History of Current Complaint Chief Complaint: EDShortnessOfBreath Time Seen by Provider: 07/18/17 11:58 Hx Obtained From: Patient Onset/Duration: Gradual Onset, Lasting Days, Still Present Timing: Constant Current Severity: Moderate Dyspnea At: Rest Aggrevating Factors: Nothing Alleviating Factors: Nothing Associated Signs & Symptoms: Cough (Nonproductive), Diaphoresis - Allergy/Home Medications Allergies/Adverse Reactions: Allergies Allergy/AdvReac Type Severity Reaction Status Date / Time No Known Allergies Allergy Verified 07/18/17 11:52 PMH/Surg Hx/FS Hx/Imm Hx Endocrine/Hematology History: Reports: Hx Anemia - hx of, unsure why vitamin b 12 Denies: Hx Diabetes Cardiovascular History: Denies: Hx Hypertension, Other Cardiovascular Problems/Disorders Respiratory History: Reports: Hx Asthma - will bring inhalers, Hx Chronic Obstructive Pulmonary Disease (COPD), Other Respiratory Problems/Disorders - bronchiectasis GI History: Reports: Hx Gastroesophageal Reflux Disease Denies: Other GI Disorders History: Denies: Hx Renal Disease Musculoskeletal History: Reports: Hx Arthritis - lumbar Sensory History: Denies: Hx Contacts or Glasses, Hx Hearing Aid Opthamlomology History: Denies: Hx Contacts or Glasses - Surgical History Surgery Procedure, Year, and Place: NONE Hx Anesthesia Reactions: No Infectious Disease History: No Infectious Disease History: Denies: Traveled Outside the [place] in Last 30 Days - Family History Known Family History: Positive: Other - fibromyalgia and cancer - Social History Occupation: Employed Full-time Lives: Alone Alcohol Use: Weekly Alcohol Amount: 3-4 beers/day Substance Use Type: Reports: None Hx Tobacco Use: Yes Smoking Status (MU): Never Smoked Tobacco Review of Systems Positive: Skin Diaphoresis. Negative: Fever Positive: Shortness Of Breath, Cough All Other Systems Reviewed And Are Negative: Yes Physical Exam - Summary Physical Exam Summary: General: well-appearing, mild to moderate respiratory distress Skin: warm, color reflects adequate perfusion, dry Head: normal Eyes: EOMI, MILLIE ENT: normal Neck: supple, nontender Respiratory: wheezes bilaterally , breath sounds present Cardiovascular: tackycardic, regular rhythm Abdomen: soft, nontender Bowel: present Musculoskeletal: normal, strength/ROM intact Neurological: normal, sensory/motor intact, A&O x3 Psychological: affect/mood appropriate Triage Information Reviewed: Yes Vital Signs On Initial Exam: Initial Vitals Temp Pulse Resp BP Pulse Ox 98.4 F 150 24 141/126 94 07/18/17 11:52 07/18/17 11:52 07/18/17 11:52 07/18/17 11:52 07/18/17 11:52 Vital Signs Reviewed: Yes Diagnostics - Vital Signs Vital Signs Temp Pulse Resp BP Pulse Ox 07/18/17 11:52 98.4 F 150 24 141/126 94 - Laboratory Lab Results: Lab Results 07/18/17 07/18/17 07/18/17 Range/Units 12:15 12:15 12:15 WBC (3.5-10.8) 10^3/ul RBC (4.0-5.4) 10^6/ul Hgb (14.0-18.0) g/dl Hct (42-52) % MCV (80-94) fL MCH (27-31) pg MCHC (31-36) g/dl RDW (10.5-15) % Plt Count (150-450) 10^3/ul MPV (7.4-10.4) um3 Neut % (Auto) (38-83) % Lymph % (Auto) (25-47) % [place] % (Auto) (0-7) % Eos % (Auto) (0-6) % Baso % (Auto) (0-2) % Absolute Neuts (auto) (1.5-7.7) 10^3/ul Absolute Lymphs (auto) (1.0-4.8) 10^3/ul Absolute Monos (auto) (0-0.8) 10^3/ul Absolute Eos (auto) (0-0.6) 10^3/ul Absolute Basos (auto) (0-0.2) 10^3/ul Absolute Nucleated RBC 10^3/ul Nucleated RBC % INR (Anticoag Therapy) 1.00 (0.77-1.02) APTT 27.0 (26.0-36.3) seconds D-Dimer, Quantitative 309 H (Less Than 230) ng/mL Sodium 134 (133-145) mmol/L Potassium 3.8 (3.5-5.0) mmol/L Chloride 100 L (101-111) mmol/L Carbon Dioxide 20 L (22-32) mmol/L Anion Gap 14 H (2-11) mmol/L BUN 17 (6-24) mg/dL Creatinine 1.50 H (0.67-1.17) mg/dL Est GFR ( Amer) 63.5 (>60) Est GFR (Non-Af Amer) 49.3 (>60) BUN/Creatinine Ratio 11.3 (8-20) Glucose 126 H (70-100) mg/dL Lactic Acid 3.0 H* (0.5-2.0) mmol/L Calcium 9.9 (8.6-10.3) mg/dL Magnesium 1.4 L (1.9-2.7) mg/dL Total Bilirubin 1.10 H (0.2-1.0) mg/dL AST 18 (13-39) U/L ALT 22 (7-52) U/L Alkaline Phosphatase 56 (34-104) U/L Lactate Dehydrogenase 218 (140-271) U/L Total Creatine Kinase 76 (10-223) U/L CK-MB (CK-2) 1.3 (0.6-6.3) ng/mL Troponin I 0.01 (<0.04) ng/mL C-Reactive Protein 42.92 H (< 5.00) mg/L B-Natriuretic Peptide ( - 100) pg/mL Total Protein 7.3 (6.4-8.9) g/dL Albumin 4.4 (3.2-5.2) g/dL Globulin 2.9 (2-4) g/dL Albumin/Globulin Ratio 1.5 (1-3) Lipase 11 (11.0-82.0) U/L TSH 1.45 (0.34-5.60) mcIU/mL 07/18/17 07/18/17 Range/Units 12:15 12:15 WBC 20.9 H (3.5-10.8) 10^3/ul RBC 4.97 (4.0-5.4) 10^6/ul Hgb 15.8 (14.0-18.0) g/dl Hct 46 (42-52) % MCV 92 (80-94) fL MCH 32 H (27-31) pg MCHC 35 (31-36) g/dl RDW 12 (10.5-15) % Plt Count 264 (150-450) 10^3/ul MPV 9 (7.4-10.4) um3 Neut % (Auto) 90.7 H (38-83) % Lymph % (Auto) 3.3 L (25-47) % [place] % (Auto) 5.5 (0-7) % Eos % (Auto) 0 (0-6) % Baso % (Auto) 0.5 (0-2) % Absolute Neuts (auto) 19.9 H (1.5-7.7) 10^3/ul Absolute Lymphs (auto) 0.7 L (1.0-4.8) 10^3/ul Absolute Monos (auto) 1.2 H (0-0.8) 10^3/ul Absolute Eos (auto) 0 (0-0.6) 10^3/ul Absolute Basos (auto) 0.1 (0-0.2) 10^3/ul Absolute Nucleated RBC 0 10^3/ul Nucleated RBC % 0 INR (Anticoag Therapy) (0.77-1.02) APTT (26.0-36.3) seconds D-Dimer, Quantitative (Less Than 230) ng/mL Sodium (133-145) mmol/L Potassium (3.5-5.0) mmol/L Chloride (101-111) mmol/L Carbon Dioxide (22-32) mmol/L Anion Gap (2-11) mmol/L BUN (6-24) mg/dL Creatinine (0.67-1.17) mg/dL Est GFR ( Amer) (>60) Est GFR (Non-Af Amer) (>60) BUN/Creatinine Ratio (8-20) Glucose (70-100) mg/dL Lactic Acid (0.5-2.0) mmol/L Calcium (8.6-10.3) mg/dL Magnesium (1.9-2.7) mg/dL Total Bilirubin (0.2-1.0) mg/dL AST (13-39) U/L ALT (7-52) U/L Alkaline Phosphatase (34-104) U/L Lactate Dehydrogenase (140-271) U/L Total Creatine Kinase (10-223) U/L CK-MB (CK-2) (0.6-6.3) ng/mL Troponin I (<0.04) ng/mL C-Reactive Protein (< 5.00) mg/L B-Natriuretic Peptide 100 ( - 100) pg/mL Total Protein (6.4-8.9) g/dL Albumin (3.2-5.2) g/dL Globulin (2-4) g/dL Albumin/Globulin Ratio (1-3) Lipase (11.0-82.0) U/L TSH (0.34-5.60) mcIU/mL Result Diagrams: 07/18/17 12:15 07/18/17 12:15 Lab Statement: Any lab studies that have been ordered have been reviewed, and results considered in the medical decision making process. - Radiology CXR Radiology Interpretation Completed By: Radiologist - NO ACTIVE CARDIOPULMONARY DISEASE IS NOTED. ED physician reviewed and agrees with the report. - CT Chest/Thorax CTA CT Interpretation: No Acute Changes CT Interpretation Completed By: Radiologist - NO PULMONARY ARTERIAL FILLING DEFECT TO SUGGEST PULMONARY EMBOLISM. ED physician reviewed and agrees with this report. - EKG 11:57 Cardiac Rate: Tachycardia - 146 BPM EKG Interpretation: narrow complex tackycardia, flipped Ts in lateral and inferior leads 12:40 Cardiac Rate: Tachycardia EKG Rhythm: Atrial Fibrillation - 134 BPM EKG Interpretation: Repolarization abnormality suggests ischemia, diffuse leads Course/Dx - Course Course Of Treatment: BP noted and advised to follow up with PCP. ADMIT ICU HOSPITALIST. - Diagnoses Provider Diagnoses: Elevated blood pressure reading without diagnosis of hypertension, New onset a- fib - Critical Care Time Critical Care Time: 30-74 min Discharge - Sign-Out/Discharge Documenting (check all that apply): Discharge - ADMIT - Discharge Plan Condition: Stable Disposition: ADMITTED TO [facility] - Billing Disposition and Condition Condition: STABLE Disposition: [facility] [place] [facility] [place] The documentation as recorded by the Cheikh lópez Stephanie accurately reflects the service I personally performed and the decisions made by , Lewis Owusu MD.
[2017-07-18] MEDS: Acetaminophen TAB* 325 MG PO PRN (16:26)
[2017-07-18 16:42] LABS: Urine Appearance Cloudy; Urine Blood 1+ (Negative); Urine Color Yellow; Urine Ketones Trace (Negative); Urine Protein Negative (Negative); Urine Red Blood Cell Trace(0-2/hpf) (Absent); Urine Specific Gravity 1.053 (1.010-1.030); Urine Urobilinogen Negative (Negative); Urine White Blood Cell Absent (Absent)
[2017-07-18] MEDS ORDERED: NS 0.9% 1000 ML* 1,000 ML IV ONE ×2 (16:44→17:21)
[2017-07-18] MEDS ORDERED: Albuterol HFA INHALER* 8 gm MDI INH PRN (16:47)
[2017-07-18] MEDS: cefTRIAXone 1000 MG SYRINGE IVPB Q24H IVPB SCH ×2 (17:21)
[2017-07-18] MEDS: metroNIDAZOLE IV 500 MG/100ML* 500 MG/100 ML BAG IVPB SCH (18:54)
--- NOTE | 2017-07-18 18:59 | RAD ---
CLINICAL HISTORY: Left flank pain. The patient had a contrast-enhanced CT of the chest at approximately 1:45 PM on July 18, 2017 COMPARISON: September 19, 2016 TECHNIQUE: Multiple contiguous axial CT scans were obtained of the abdomen and pelvis, without intravenous contrast enhancement. Coronal and sagittal multiplanar reformations are submitted for review. Oral contrast was not administered. FINDINGS: The study is limited by the lack of intravenous contrast. This limits evaluation of the solid organs and vasculature. LUNG BASES: The lung bases are clear. LIVER: The liver is normal in shape, size, contour, and attenuation. BILE DUCTS: There is no intrahepatic or extrahepatic biliary dilatation. GALLBLADDER: There is vicarious excretion of contrast within the gallbladder. PANCREAS: The pancreas is normal, without mass or ductal dilatation. SPLEEN: Normal in size and appearance. UPPER GI TRACT: Evaluation of the gastrointestinal tract is limited by incomplete gastric distention. The upper GI tract is unremarkable. SMALL BOWEL AND MESENTERY: The small bowel is normal in contour, course, and caliber. There is no obstruction or dilatation. COLON: The colon is normal in contour, course, caliber. There is no pericolonic inflammatory change. ADRENALS: Normal bilaterally. KIDNEYS: Contrast is noted within the renal collecting systems bilaterally. There is no appreciable hydronephrosis. There is no appreciable nephrolithiasis, though evaluation is limited due to the presence of intravenous contrast. BLADDER: A Carlson catheter is noted in the bladder. There is gas within the bladder. PELVIC ORGANS: The prostate gland is normal. The seminal vesicles are symmetric. AORTA: The aorta is normal. IVC: Unremarkable LYMPH NODES: There is no lymphadenopathy by size criteria. ABDOMINAL WALL: There is a small fat-containing left inguinal hernia. BONES AND SOFT TISSUES: Unremarkable OTHER: None IMPRESSION: THERE IS NO APPRECIABLE HYDRONEPHROSIS OR NEPHROLITHIASIS, THOUGH EVALUATION FOR STONES IS LIMITED BY THE PRESENCE OF CONTRAST WITHIN THE RENAL COLLECTING SYSTEM FROM A CONTRAST ENHANCED CT EARLIER IN THE DAY.
[2017-07-18] MEDS: Mometasone/Formoter 200/5 MDI INH SCH (19:29)
--- NOTE | 2017-07-18 21:38 | HP ---
CC: Dr. Oleary; Dr. Newman * HISTORY AND PHYSICAL: DATE OF ADMISSION: 07/18/17 PRIMARY CARE PROVIDER: None. ATTENDING PHYSICIAN WHILE IN THE HOSPITAL: Elvira Rubin DO * (report dictated by Kale Mejia NP). CONSULTING EMAIL MARKETING INTERN: Dr. Newman. CONSULTING DONOR RELATIONS COORDINATOR: Dr. Oleary. CHIEF COMPLAINT: 1. Cough. 2. Shortness of breath. 3. Nausea, vomiting, and diarrhea. HISTORY OF PRESENT ILLNESS: Mr. Dickson is a 52-year-old male patient who has a questionable history of COPD versus asthma, possible bronchiectasis, he sees a curing supervisor up in [place]. He also has a history of working diagnosis of Sjogren's disorder, he sees Dr. Lopez, also has history of GERD and peptic ulcer disease. He comes into the ED today. He says he at the baseline has a chronic cough, which he is normally a dry, persistent cough, which he has had for 5 years, but he has noted for the last couple of weeks the cough has gotten progressively worse. He is bringing up a yellowish type sputum, which he normally does not do. His roommate has also been sick recently as well with similar symptoms. His roommate did have pneumonia. The patient says he has not been having any fevers or chills. He was on a medication, antibiotic was started, he believes it was doxycycline and prednisone as well. He took these medications and initially started feeling better. He felt well for 36 to 48 hours in the last couple of days; however, the last day or so now he has been having worsening cough again, worsening shortness of breath particularly when he was coughing. He has pain in his chest when he is coughing. He says he has been having some vomiting and some diarrhea, but he denies any abdominal pain. He denies having any blood in the stool. He did admit to having some lower abdominal cramping when he is having diarrhea, but no pain at rest. He denies having any fevers. He says his appetite has been down and he thinks he has lost about 7 to 8 pounds. He came into the ED. It was noted that when he came in that he appeared to be tachycardic. He looked like he was in new onset AFib. There was a concern given his overall labs and the fact that he appeared to be in new AFib and we were asked to evaluate for admission. PAST MEDICAL HISTORY: Significant for: 1. COPD. 2. Asthma. 3. Sjogren's. 4. GERD. 5. Questionable bronchiectasis. 6. Peptic ulcer disease. PAST SURGICAL HISTORY: He has had heart catheterization, which was done in 2017 just about a year ago, which showed no impression of normal coronary arteries. He had a hernia repair as well. HOME MEDICATIONS: Include: 1. Spiriva 1 puff inhaled daily. 2. Singulair 10 mg daily. 3. Plaquenil 2 tablets p.o. daily. 4. Nexium 40 mg a day. 5. Symbicort 2 puffs inhaled b.i.d. 6. Albuterol 2 puffs inhaled every 4 hours as needed. ALLERGIES TO MEDICATIONS: Include no known drug allergies. FAMILY HISTORY: His mother has fibromyalgia and lupus. Father had a history of cancer. SOCIAL HISTORY: He does drink 2 to 3 beers when he is feeling well on a daily basis. He says that he denied any recreational drug abuse and again denied having smoking. Surrogate decision maker is his mother. REVIEW OF SYSTEMS: There is no documented fever. He did admit to losing about 7 to 8 pounds. He denies having any double vision. He denies having any ear discharge. There is no rhinorrhea or sore throat. He does admit to having this cough. He does admit to shortness of breath with the cough. There is no chest pain. He denied any abdominal pain with the exception he has lower abdominal cramping when he is having diarrhea. He did admit to having nausea, vomiting, and diarrhea. He denies having any blood in the stool. Denies having any loss of consciousness, no pruritus and no skin ulceration. He does admit to having palpitations when he is coughing. Review of 14 systems completed, all others negative. PHYSICAL EXAMINATION GENERAL: At this time, Mr. Dickson is a 52-year-old male patient, he is sitting in the ED stretcher. He does not appear to be in any acute respiratory distress. VITAL SIGNS: Blood pressure 117/67, pulse 113, respirations are 20, O2 sat is 92% on room air, temperature 98.4. HEENT: Head: Atraumatic. Eyes: EOMs intact. Sclerae anicteric and not pale. Throat: Oral mucosa appears to be moist. No oropharyngeal erythema. NECK: Supple. LUNGS: He had no rhonchi or rales. He did have wheezing in the lower bases bilaterally and equal diaphragmatic expansion. HEART: Sounds S1 and S2. Irregularly irregular rate. He is tachycardic. ABDOMEN: Soft. It was flat. It was nontender. Bowel sounds were present. EXTREMITIES: Pulses were 2+ throughout. He had no peripheral edema. He is moving all 4 extremities with 5/5 strength. NEUROLOGIC: The patient is awake. He is alert. He is oriented x3. He had no gross focal deficits. SKIN: Intact. DIAGNOSTIC STUDIES/LAB DATA: WBC of 20.9, RBC 4.97, hemoglobin 15.8, hematocrit 46, and platelet count 264. His INR was 1, PTT of 27. D-dimer was 309. His sodium was 134, potassium 3.8, chloride of 100, bicarb 20, BUN 17, creatinine 1.50, glucose 126, lactate 3.0, mag 1.4, calcium 9.9. Total bili 1.1 , AST 18, ALT 20, alk phos 56, LDH pending. CK 76, CK-MB 1.3, troponin 0.01. CRP of 42. BNP of 100. TSH is normal at 1.45. He had a CTA of the chest, impression: No pulmonary artery filling defect to suggest PE. He had an EKG obtained today. His initial EKG when he came in showed what appears to be atrial fibrillation with a rate of 146. He had diffuse ST depression. Repeat EKG at 1240 showed again atrial fibrillation, rate of 134, diffuse ST depression. When we looked back at his previous EKGs when he appeared to be in a sinus rhythm with ST depression, T-wave inversions, which are similar to the EKGs that were seen today with ST depression and T-wave inversions. It looks a little bit more pronounced than he has a ST depression. He had a chest x-ray obtained today as well. No active cardiopulmonary disease. Again, he had a heart catheterization almost a year ago, which showed normal coronaries. Old medical records were reviewed. ASSESSMENT AND PLAN: Mr. Dickson is a 52-year-old male patient coming into the ED today with complaints of cough that has been getting progressively worse. He had been on an outpatient therapy and evaluation here today was found to be in atrial fibrillation. We were asked to evaluate for admission. He will be admitted under inpatient status for: 1. Atrial fibrillation and rapid ventricular response. I except this is thought to be driven from a respiratory component. He has wheezing. Dr. Oleary has been consulted. We are going to replace his magnesium that has already been started here in the ED. In addition to this, I will give him 40 mg of p.o. potassium. Given that it was 3.8, I would like to try to get him right around 4 and we will continue to follow. We will put him on a heparin drip. He is on a diltiazem drip and we will continue to monitor. 2. Question of chronic obstructive pulmonary disease versus asthma versus bronchiectasis. I am going to get his records from his primary curing supervisor. I did touch base with our curing supervisor. He does have a white count. He is coughing with a productive sputum. The sputum has been sent off from the ED. We will get Legionella antigen and Strep pneumo antigen. I am checking LDH. Previous notes did indicate that he was bisexual, so I am also going to check an HIV test as well. I put him on azithromycin and in addition to this Rocephin. Pulmonary toileting will be implemented. We will put him on steroids in addition to this Dulera and nebulizer standing. He does typically take Spiriva. We will get records by Pulmonology input and we will see if we can narrow down the source. Again, it is atypical that he is noticed on having any infiltrates on the CTA or the x-ray. Certainly this could all be viral. I think flu swab is appropriate. In addition to this also checking the stool studies as well. 3. Systemic inflammatory response syndrome. Again etiology is unclear. I do not have an obvious source of infection. It could be of viral bronchitis, could be viral pneumonia, could be influenza, but with his history and him being on Plaquenil, he is immunocompromised, I think he deserves antibiotics, steroids, treating the respiratory source, panculturing him and again seeing if we can find another source that could be the culprit. He is not having any abdominal pain. He is nontender on exam, so I do not think a CT of the abdomen and pelvis is warranted just at this point. Again, panculture fluids repeat the lactate and see if the source presents itself. 4. Peptic ulcer disease and gastroesophageal reflux disease. Continue PPI therapy. 5. DVT prophylaxis. He is going to be on a heparin drip. 6. Code status. Full code. 7. Fluids, electrolytes, and nutrition. He can have a clear liquid diet. 8. Question of Sjogren's. We will try to get records from Dr. Lopez's office. TIME SPENT: On admission was approximately 60 minutes, greater than half the time spent [id number] with the patient obtaining my history and physical, other half of the time spent going over the plan of care with the patient and implementing the plan of care. I did discuss the plan of care with my attending, Dr. Rubin; she is in agreement. KALE MEJIA, MARY [id number]/[facility] #: [id number]
[2017-07-18] MEDS: NS 0.9% 250 ML* 246 ML with Norepinephrine VIAL* 4 MG IV SCH ×2 (22:38)
[2017-07-19] MEDS: NS 0.9% 1000 ML* 1,000 ML IV SCH ×3 (01:21→23:13)
[2017-07-19] MEDS: metroNIDAZOLE IV 500 MG/100ML* 500 MG/100 ML BAG IVPB SCH ×3 (01:49→19:57)
[2017-07-19 05:23] LABS: ABS Basophils 0 10^3/ul (0-0.2); ABS Eosinophils 0 10^3/ul (0-0.6); ABS Lymphocytes 0.3 10^3/ul (1.0-4.8); ABS Monocytes 0.5 10^3/ul (0-0.8); ABS Nucleated RBC 0 10^3/ul; Eosinophil % 0 % (0-6); Hematocrit 38 % (42-52); Hemoglobin 12.8 g/dl (14.0-18.0); Lymphocyte % 6.4 % (25-47); Mean Corpuscular HGB Conc 34 g/dl (31-36); Mean Corpuscular Hemoglobin 32 pg (27-31); Mean Corpuscular Volume 94 fL (80-94); Mean Platelet Volume 9 um3 (7.4-10.4); Nucleated Red Blood Cells % 0.1; Platelet Count 134 10^3/ul (150-450); Red Cell Distribution Width 13 % (10.5-15); White Blood Count 4.8 10^3/ul (3.5-10.8)
[2017-07-19 05:28] LABS: INR 1.17 (0.77-1.02)
[2017-07-19 05:36] LABS: EGFR Non-African American 87.8 (>60)
[2017-07-19] MEDS: Mometasone/Formoter 200/5 MDI INH SCH ×2 (07:38→20:31)
[2017-07-19] MEDS: Hydroxychloroquine TAB* 200 MG PO SCH (08:03)
[2017-07-19] MEDS: predniSONE TAB* 20 MG PO SCH (08:03)
[2017-07-19] MEDS: Omeprazole CAP* 20 MG PO SCH (08:03)
[2017-07-19] MEDS: Acetaminophen TAB* 325 MG PO PRN (08:51)
--- NOTE | 2017-07-19 10:15 | PN ---
Subjective Date of Service: 07/19/17 Interval History: Still feels poorly. Ate some breakfast but has some lower quadrant abdominal pain and loose stools. Objective Active Medications: Acetaminophen (Tylenol Tab*) 650 mg PO Q4H PRN PRN Reason: FEVER/PAIN Last Admin: 07/19/17 08:51 Dose: 650 mg Albuterol (Ventolin Hfa Inhaler*) 2 puff INH Q4H PRN PRN Reason: SOB/WHEEZING Hydroxychloroquine Sulfate (Plaquenil Tab*) 400 mg PO DAILY [facility] Last Admin: 07/19/17 08:03 Dose: 400 mg Azithromycin 500 mg/ Sodium (Chloride) 250 mls @ 250 mls/hr IVPB Q24H [facility] Last Admin: 07/18/17 16:17 Dose: 250 mls/hr Ceftriaxone Sodium 1,000 mg/ (Sterile Water) 10 mls @ 40 mls/hr IVPB Q24H [facility] Last Admin: 07/18/17 17:21 Dose: 40 mls/hr Metronidazole/Sodium Chloride (Flagyl 500 Mg Ivpb*) 500 mg in 100 mls @ 100 mls /hr IVPB Q8H [facility] Last Admin: 07/19/17 01:49 Dose: 100 mls/hr Norepinephrine Bitartrate 4 mg (/ Sodium Chloride) 250 mls @ 7.5 mls/hr IV Q24H [facility]; 2 MCG/MIN PRN Reason: Protocol Last Admin: 07/18/17 22:38 Dose: Not Given Sodium Chloride (Ns 0.9% 1000 Ml*) 1,000 mls @ 125 mls/hr IV PER RATE [facility] Last Admin: 07/19/17 01:21 Dose: 125 mls/hr Mometasone Furoate/Formoterol Fumar (Dulera 200/5 Mdi*) 2 puff INH BID [facility] Last Admin: 07/19/17 07:38 Dose: 2 puff Omeprazole (Prilosec Cap*) 20 mg PO DAILY@0730 [facility] PRN Reason: Protocol Last Admin: 07/19/17 08:03 Dose: 20 mg Ondansetron HCl (Zofran Inj*) 4 mg IV Q6H PRN PRN Reason: NAUSEA Prednisone (Deltasone Tab*) 60 mg PO DAILY [facility] Last Admin: 07/19/17 08:03 Dose: 60 mg Vital Signs - 8 hr 07/19/17 07/19/17 07/19/17 02:30 03:00 03:01 Temperature 99.9 F 99.7 F 99.7 F Pulse Rate 70 69 69 Respiratory 20 19 20 Rate Blood Pressure 95/59 100/63 (mmHg) O2 Sat by Pulse 98 99 98 Oximetry 07/19/17 07/19/17 07/19/17 03:30 04:00 04:01 Temperature 99.7 F 99.5 F 99.5 F Pulse Rate 69 68 71 Respiratory 20 20 21 Rate Blood Pressure 93/57 96/56 (mmHg) O2 Sat by Pulse 98 98 98 Oximetry 07/19/17 07/19/17 07/19/17 04:30 05:00 05:01 Temperature 99.9 F 100.0 F 100.0 F Pulse Rate 69 71 72 Respiratory 20 19 22 Rate Blood Pressure 97/61 96/64 (mmHg) O2 Sat by Pulse 99 98 97 Oximetry 07/19/17 07/19/17 07/19/17 05:30 06:00 06:01 Temperature 100.0 F 99.9 F 99.9 F Pulse Rate 64 69 69 Respiratory 18 21 20 Rate Blood Pressure 93/59 101/57 (mmHg) O2 Sat by Pulse 98 96 97 Oximetry 07/19/17 07/19/17 07/19/17 06:30 07:00 07:01 Temperature 99.5 F 99.7 F 99.7 F Pulse Rate 64 69 69 Respiratory 18 18 18 Rate Blood Pressure 103/63 102/61 (mmHg) O2 Sat by Pulse 99 98 98 Oximetry 07/19/17 07/19/17 07/19/17 07:30 07:40 07:56 Temperature 99.7 F Pulse Rate 65 75 Respiratory 17 20 18 Rate Blood Pressure 89/52 (mmHg) O2 Sat by Pulse 99 97 Oximetry 07/19/17 07/19/17 07/19/17 08:00 08:01 08:30 Temperature 99.5 F 99.5 F 99.7 F Pulse Rate 76 82 79 Respiratory 19 21 22 Rate Blood Pressure 95/67 117/66 (mmHg) O2 Sat by Pulse 97 96 95 Oximetry 07/19/17 07/19/17 07/19/17 09:00 09:01 09:30 Temperature 100.0 F 100.0 F 100.2 F Pulse Rate 85 85 Respiratory 21 23 24 Rate Blood Pressure 119/77 118/72 (mmHg) O2 Sat by Pulse 93 94 Oximetry Oxygen Devices in Use Now: OxyMask Appearance: alert, ill-appearing, no distress, but uncomfortable Eyes: No Scleral Icterus Ears/Nose/Mouth/Throat: NL Teeth, Lips, Gums Neck: NL Appearance and Movements; NL JVP Respiratory: Symmetrical Chest Expansion and Respiratory Effort, Clear to Auscultation Cardiovascular: NL Sounds; No Murmurs; No JVD, RRR Abdominal: NL Sounds; No Tenderness; No Distention, - - mild tenderness to deep palpation Lymphatic: No Cervical Adenopathy Extremities: No Edema Skin: No Rash or Ulcers Neurological: Alert and Oriented x 3 Result Diagrams: 07/19/17 05:10 07/19/17 05:10 Additional Lab and Data: Lab Results 07/18/17 07/18/17 07/18/17 Range/Units 12:15 12:15 12:15 WBC (3.5-10.8) 10^3/ul RBC (4.0-5.4) 10^6/ul Hgb (14.0-18.0) g/dl Hct (42-52) % MCV (80-94) fL MCH (27-31) pg MCHC (31-36) g/dl RDW (10.5-15) % Plt Count (150-450) 10^3/ul MPV (7.4-10.4) um3 Neut % (Auto) (38-83) % Lymph % (Auto) (25-47) % [place] % (Auto) (0-7) % Eos % (Auto) (0-6) % Baso % (Auto) (0-2) % Absolute Neuts (auto) (1.5-7.7) 10^3/ul Absolute Lymphs (auto) (1.0-4.8) 10^3/ul Absolute Monos (auto) (0-0.8) 10^3/ul Absolute Eos (auto) (0-0.6) 10^3/ul Absolute Basos (auto) (0-0.2) 10^3/ul Absolute Nucleated RBC 10^3/ul Nucleated RBC % INR (Anticoag Therapy) 1.00 (0.77-1.02) APTT 27.0 (26.0-36.3) seconds D-Dimer, Quantitative 309 H (Less Than 230) ng/mL Sodium 134 (133-145) mmol/L Potassium 3.8 (3.5-5.0) mmol/L Chloride 100 L (101-111) mmol/L Carbon Dioxide 20 L (22-32) mmol/L Anion Gap 14 H (2-11) mmol/L BUN 17 (6-24) mg/dL Creatinine 1.50 H (0.67-1.17) mg/dL Est GFR ( Amer) 63.5 (>60) Est GFR (Non-Af Amer) 49.3 (>60) BUN/Creatinine Ratio 11.3 (8-20) Glucose 126 H (70-100) mg/dL Lactic Acid 3.0 H* (0.5-2.0) mmol/L Calcium 9.9 (8.6-10.3) mg/dL Magnesium 1.4 L (1.9-2.7) mg/dL Total Bilirubin 1.10 H (0.2-1.0) mg/dL AST 18 (13-39) U/L ALT 22 (7-52) U/L Alkaline Phosphatase 56 (34-104) U/L Lactate Dehydrogenase 218 (140-271) U/L Total Creatine Kinase 76 (10-223) U/L CK-MB (CK-2) 1.3 (0.6-6.3) ng/mL Troponin I 0.01 (<0.04) ng/mL C-Reactive Protein 42.92 H (< 5.00) mg/L B-Natriuretic Peptide ( - 100) pg/mL Total Protein 7.3 (6.4-8.9) g/dL Albumin 4.4 (3.2-5.2) g/dL Globulin 2.9 (2-4) g/dL Albumin/Globulin Ratio 1.5 (1-3) Lipase 11 (11.0-82.0) U/L TSH 1.45 (0.34-5.60) mcIU/mL 07/18/17 07/18/17 Range/Units 12:15 12:15 WBC 20.9 H (3.5-10.8) 10^3/ul RBC 4.97 (4.0-5.4) 10^6/ul Hgb 15.8 (14.0-18.0) g/dl Hct 46 (42-52) % MCV 92 (80-94) fL MCH 32 H (27-31) pg MCHC 35 (31-36) g/dl RDW 12 (10.5-15) % Plt Count 264 (150-450) 10^3/ul MPV 9 (7.4-10.4) um3 Neut % (Auto) 90.7 H (38-83) % Lymph % (Auto) 3.3 L (25-47) % [place] % (Auto) 5.5 (0-7) % Eos % (Auto) 0 (0-6) % Baso % (Auto) 0.5 (0-2) % Absolute Neuts (auto) 19.9 H (1.5-7.7) 10^3/ul Absolute Lymphs (auto) 0.7 L (1.0-4.8) 10^3/ul Absolute Monos (auto) 1.2 H (0-0.8) 10^3/ul Absolute Eos (auto) 0 (0-0.6) 10^3/ul Absolute Basos (auto) 0.1 (0-0.2) 10^3/ul Absolute Nucleated RBC 0 10^3/ul Nucleated RBC % 0 INR (Anticoag Therapy) (0.77-1.02) APTT (26.0-36.3) seconds D-Dimer, Quantitative (Less Than 230) ng/mL Sodium (133-145) mmol/L Potassium (3.5-5.0) mmol/L Chloride (101-111) mmol/L Carbon Dioxide (22-32) mmol/L Anion Gap (2-11) mmol/L BUN (6-24) mg/dL Creatinine (0.67-1.17) mg/dL Est GFR ( Amer) (>60) Est GFR (Non-Af Amer) (>60) BUN/Creatinine Ratio (8-20) Glucose (70-100) mg/dL Lactic Acid (0.5-2.0) mmol/L Calcium (8.6-10.3) mg/dL Magnesium (1.9-2.7) mg/dL Total Bilirubin (0.2-1.0) mg/dL AST (13-39) U/L ALT (7-52) U/L Alkaline Phosphatase (34-104) U/L Lactate Dehydrogenase (140-271) U/L Total Creatine Kinase (10-223) U/L CK-MB (CK-2) (0.6-6.3) ng/mL Troponin I (<0.04) ng/mL C-Reactive Protein (< 5.00) mg/L B-Natriuretic Peptide 100 ( - 100) pg/mL Total Protein (6.4-8.9) g/dL Albumin (3.2-5.2) g/dL Globulin (2-4) g/dL Albumin/Globulin Ratio (1-3) Lipase (11.0-82.0) U/L TSH (0.34-5.60) mcIU/mL Microbiology and Other Data: Microbiology 07/18/17 16:42 Nasal Screen MRSA (PCR)([facility]) - Final Nasal Mrsa Not Detected 07/18/17 16:19 Stool Gross Appearance - Final Stool C. difficile DNA Amplification - Final 027 Presumptive NEGATIVE Toxigenic C.diff NEGATIVE Stool Lactoferrin - Final Rotavirus Antigen - Final Negative Rotavirus 07/18/17 16:15 Legionella Urinary Antigen - Final Urine Negative Legionella Antigen Streptococcus pneumoniae Ag Screen - Final Negative S. pneumo Antigen 07/18/17 16:15 Influenza Types A,B Antigen ([facility]) - Final Nasal Specimen received for Influenza A/B Molecular testing Assess/Plan/Problems-Billing Assessment: 52 yo man undergoing treatment for sjogren's with plaquenil presents with shortness of breath, nausea, vomiting, diarrhea, and fevers, whose infectious workup remains negative. - Patient Problems (1) Nausea, vomiting, and diarrhea Current Visit: No Status: Acute Code(s): R11.2 - NAUSEA WITH VOMITING, UNSPECIFIED; R19.7 - DIARRHEA, UNSPECIFIED SNOMED Code(s): 2416158 Comment: stool studies are negative thus far; CT abdomen/pelvis did not reveal any intra-abdominal pathology tolerative PO diet HIV PCR pending; need to rule out acute HIV infection (2) Productive cough Current Visit: Yes Status: Acute Code(s): R05 - COUGH SNOMED Code(s): 37652566 Comment: follow up sputum cultures; continue treatment for CAP he does have chronic nonproductive cough in setting of bronchiectasis (this is followed by pulmonology and is somewhat undifferentiated at this time) but now has become productive (3) Alcohol abuse, daily use Current Visit: No Status: Chronic Code(s): F10.10 - ALCOHOL ABUSE, UNCOMPLICATED SNOMED Code(s): 972863317 Comment: [facility] protocol (4) Sjogren's syndrome Current Visit: No Status: Chronic Code(s): M35.00 - SICCA SYNDROME, UNSPECIFIED SNOMED Code(s): 73438235 Comment: He should be considered somewhat immunocompromised on plaquenil With lung involvement and chronic nonproductive cough Continue outpatient follow-up with Dr. Pozo (brine process operator). Status and Disposition: transfer to the floor today
[2017-07-19] MEDS ORDERED: Acetaminophen TAB* 325 MG PO PRN (11:27)
[2017-07-19] MEDS ORDERED: LORazepam TAB(*) 1 MG PO SCH (12:00)
[2017-07-19] MEDS ORDERED: Diltiazem IV VIAL* 125 MG in NS 0.9% 100 ML* 100 ML IV SCH (13:00)
[2017-07-19] MEDS: Azithromycin IV(*) 500 MG in NS 0.9% 250 ML* 250 ML IVPB SCH (16:30)
[2017-07-19] MEDS: cefTRIAXone 1000 MG SYRINGE IVPB Q24H IVPB SCH ×2 (17:49)
[2017-07-19] MEDS: NS 0.9% 250 ML* 246 ML with Norepinephrine VIAL* 4 MG IV SCH ×2 (19:32)
--- NOTE | 2017-07-20 00:18 | CONS ---
PULMONARY CONSULTATION REPORT: DATE OF CONSULT: 07/19/17 CONSULTATION REQUESTED BY: Kale Mejia NP REASON FOR CONSULT: Evaluation of shortness of breath. HISTORY OF PRESENT ILLNESS: The patient is a 52-year-old male with history of questionable COPD versus asthma, possible bronchiectasis, followed up by children librarian in [place]. Sjogren's diagnosed few years ago. The patient presents for evaluation of worsening shortness of breath, cough, nausea, vomiting, and diarrhea. The patient reports that he has been having worsening shortness of breath recently and productive cough, was seen in Urgent Care recently, was given antibiotics and prednisone. Symptoms did not improve and he decided to come into the emergency room for further evaluation. The patient reports that he was diagnosed with COPD few years ago when he was having shortness of breath issues. The patient is a lifelong nonsmoker. The patient has worked in occupation that has resulted in exposure to fumes, dust, and chemicals. The patient is currently considering disability. The patient reports worsening cough, shortness of breath associated with nausea, vomiting, and diarrhea recently. The patient reports yellow phlegm. His roommate was also sick recently with similar symptoms and was diagnosed with pneumonia. The patient denies fevers or chills. He was started on prednisone and doxycycline, felt better for a few days and started having worsening symptoms again. The patient also reports diarrhea; however, denies significant abdominal pain. Denies blood in the stools. The patient also reports decreased appetite and weight loss for about 7 to 8 pounds recently. The patient was tachycardic and tachypneic in the ED and was noted to have new onset AFib. He was also noted to have elevated lactate, elevated white count and was admitted for presumed COPD exacerbation and bronchiectasis exacerbation. Pulmonary consultation was requested for evaluation of abnormalities. I have personally seen and examined the patient at bedside a little while ago. The patient reported feeling better today. The patient reports improvement in shortness of breath. The patient reports bringing out phlegm, which is yellow in color. The patient denies any fevers or chills at this time. The patient is unclear about his diagnosis. He reports that he was told he might have COPD as his PFTs showed decreased lung capacity. He was also diagnosed with Sjogren' s and was seen by a specialist in [facility]. The patient, however, does not have significant dry skin or dry eyes issues. The patient was also told that he has bronchiectasis. I personally reviewed chest x-ray and CT scan on admission. The patient with evidence of hyperinflation; however, we doubt significant emphysematous changes. He does not have evidence of significant bronchiectasis. There is evidence of mild bronchiectasis bilaterally at the bases. No other suspicious nodules or masses were noted. No evidence of pneumonia was noted. He was admitted and he is being managed for rapid onset AFib with rapid ventricular response and also for COPD exacerbation. PAST MEDICAL HISTORY: 1. COPD. 2. Asthma. 3. Sjogren's. 4. GERD. 5. Bronchiectasis. 6. Peptic ulcer disease. PAST SURGICAL HISTORY: 1. Cardiac catheterization in 2017. No obstructive disease was noted. 2. Hernia repair. MEDICATIONS: 1. Spiriva. 2. Singulair. 3. Plaquenil. 4. Nexium. 5. Symbicort. 6. Albuterol. ALLERGIES: No known drug allergies. FAMILY HISTORY: Fibromyalgia and lupus. Father, malignancy. SOCIAL HISTORY: Two to three beers. No recreational drug abuse. Denies smoking in the past. REVIEW OF SYSTEMS: All 14 systems reviewed and as per HPI. PHYSICAL EXAM: The patient in bed, in no apparent distress. Vital Signs: Temperature 98.8, pulse 81 beats per minute, respiratory rate 18 per minute, O2 sat 96%, blood pressure 122/69. HEENT: Pupils are equal and reactive to light , mucous membranes moist. Neck: Supple. Lungs: Good air entry bilaterally. No wheeze on auscultation. Cardiovascular: S1, S2 present, regular. Abdomen: Soft, nontender, nondistended. Bowel sounds present. Extremities: Normal range of motion. Neurologic: No focal deficits. Skin: No rash or bruises. DIAGNOSTIC STUDIES/LAB DATA: WBC count 4.8; hemoglobin 12.8; hematocrit 38; platelet count was 134, it appeared more dilutional today. Sodium 133, potassium 4.0, chloride 107, bicarb 23, BUN 10, creatinine 0.9. Lactate normalized, was elevated at 3 on admission. BNP was within normal limits. CRP was elevated at 42.92. LFTs were within normal limits. Influenza A and B negative. CT of the chest performed on admission was personally by me. No evidence of filling defects suggestive of pulmonary embolism. The patient did not have evidence of emphysematous changes. Mild bronchiectasis was seen bilaterally. The patient also had abdominal CT scan performed, which showed no evidence of hydronephrosis or nephrolithiasis. No other abnormalities were noted. IMPRESSION AND RECOMMENDATIONS: 52-year-old male, nonsmoker with questionable history of asthma/chronic obstructive pulmonary disease and questionable history of bronchiectasis, who presents with worsening shortness of breath after being treated outpatient for bronchitis, being managed for acute chronic obstructive pulmonary disease exacerbation. Also, had atrial fibrillation with rapid ventricular response that is being treated. He appears to be improving from respiratory perspective. I agree with current antibiotics. Can start steroid taper as he is sounding much better without much wheezing/ bronchospasm. Continue with bronchodilators. He sees children librarian at [place], with whom he would be following up with upon d/c. Thank you for allowing me to participate in the care of your patient. Will follow up with you. [id number]/[facility] #: [id number] TAMIA
[2017-07-20] MEDS: metroNIDAZOLE IV 500 MG/100ML* 500 MG/100 ML BAG IVPB SCH ×2 (02:50→10:15)
[2017-07-20 05:43] LABS: Hematocrit 33 % (42-52); Hemoglobin 11.3 g/dl (14.0-18.0); Mean Corpuscular HGB Conc 35 g/dl (31-36); Mean Corpuscular Hemoglobin 32 pg (27-31); Mean Corpuscular Volume 94 fL (80-94); Mean Platelet Volume 8.5 um3 (7.4-10.4); Platelet Count 119 10^3/ul (150-450); Red Blood Count 3.48 10^6/ul (4.0-5.4); Red Cell Distribution Width 13 % (10.5-15); White Blood Count 4.5 10^3/ul (3.5-10.8)
[2017-07-20 05:54] LABS: ABS Basophils 0 10^3/ul (0-0.2); ABS Eosinophils 0 10^3/ul (0-0.6); ABS Lymphocytes 0.7 10^3/ul (1.0-4.8); ABS Monocytes 0.6 10^3/ul (0-0.8); ABS Neutrophils 3.1 10^3/ul (1.5-7.7); ABS Nucleated RBC 0 10^3/ul; Eosinophil % 0.2 % (0-6); Lymphocyte % 16.2 % (25-47); Nucleated Red Blood Cells % 0.1
[2017-07-20 06:03] LABS: EGFR Non-African American 83.6 (>60)
[2017-07-20 06:30] LABS: ABS Basophils 0 10^3/ul (0-0.2); Monocytes % 10 % (0-7)
[2017-07-20] MEDS: NS 0.9% 1000 ML* 1,000 ML IV SCH (08:43)
[2017-07-20] MEDS: predniSONE TAB* 20 MG PO SCH (08:43)
[2017-07-20] MEDS: Omeprazole CAP* 20 MG PO SCH (08:43)
[2017-07-20] MEDS: Mometasone/Formoter 200/5 MDI INH SCH (08:48)
[2017-07-20] MEDS ORDERED: Multivitamins/Minerals TAB PO SCH (09:00)
[2017-07-20] MEDS ORDERED: Thiamine TAB* 100 MG TAB PO SCH (09:00)
[2017-07-20] MEDS ORDERED: Folic Acid TAB* 1 MG PO SCH (09:00)
[2017-07-20] MEDS: Hydroxychloroquine TAB* 200 MG PO SCH (10:15)
[2017-07-20] MEDS ORDERED: guaiFENesin/CODIEN 100MG-10MG* 5 ML UDC PO PRN (15:57)
[2017-07-20 16:07] VITALS: BP 127/73
[2017-07-20] MEDS: Azithromycin IV(*) 500 MG in NS 0.9% 250 ML* 250 ML IVPB SCH (16:18)
[2017-07-20] MEDS: NS 0.9% 250 ML* 246 ML with Norepinephrine VIAL* 4 MG IV SCH ×2 (16:20)
--- NOTE | 2017-07-21 11:48 | DS ---
DISCHARGE SUMMARY: DATE OF ADMISSION: 07/18/17 DATE OF DISCHARGE: 07/20/17 PRINCIPAL DISCHARGE DIAGNOSES: 1. Chronic obstructive pulmonary disease exacerbation. 2. Atrial fibrillation versus atrial flutter with rapid ventricular response. SECONDARY DISCHARGE DIAGNOSES: 1. Sjogren's disease. 2. Chronic obstructive pulmonary disease. 3. Bronchiectasis. 4. Gastroesophageal reflux disease. 5. Chronic cough. PHYSICAL EXAMINATION AT THE TIME OF DISCHARGE: Temperature 98.7; heart rate 65 ; respiratory rate 18; pulse ox 97% on room air, 92% with ambulation on room air ; blood pressure 127/73. General: Alert, well-appearing young man, in no distress. He coughs frequently and has clear sputum. HEENT: Pupils equal, round, and reactive to light. No conjunctival injection or hemorrhage. No pharyngeal exudates or erythema. Neck: No cervical lymphadenopathy. Chest: No wheezes or rhonchi. Regular rate and rhythm. No murmurs. Abdomen: Soft, nontender, nondistended. No guarding or rebound. Bowel sounds normoactive. Liver nonpalpable. Extremities: No edema, no rashes, no ulcers. HOSPITAL COURSE BY PROBLEM: 1. COPD exacerbation: Mr. Dickson has a complicated pulmonary history and follows with [facility], where he reports that he has been diagnosed with severe COPD that was confirmed by obstructive pattern on PFTs. He is a nonsmoker, but has been exposed to secondhand tobacco smoke from his childhood through his 20s; however, he has also been in the process of pursuing a more extensive workup for his pulmonary dysfunction as it is quite more debilitating out of proportion to his disease processes. He has also been treated for Sjogren's with Plaquenil and has carried the diagnosis of bronchiectasis for some time as well. When he presented to the emergency department, he complained of a cough that was worse than his baseline cough and it was productive of sputum which is unlike his usual cough, so he was admitted and started on steroids and azithromycin and Rocephin for community acquired pneumonia coverage. He had a CT chest at admission which showed no pulmonary pathology. A flu swab was negative. Legionella antigen and strep pneumo antigens were negative. He was evaluated by Dr. Newman who agreed with steroids and antibiotics for COPD exacerbation. I am continuing him on a long steroid taper since he had just been treated with a 5-day burst 2 weeks prior to admission, during which he explains he got better on, but several days after he discontinued them he began to decompensate again. At the time of discharge, he is feeling much better and is able to ambulate on room air and stay at 92%. Certainly, his pulmonary disease requires more workup and he follows with [facility] for this. He was supposed to have a lung biopsy at [place], but he says they would not take his insurance. He has what I would consider to be undifferentiated obstructive pulmonary disease in the setting of a possible autoimmune disorder and he should be followed closely by Pulmonology and continued to be worked up. He agrees to following up with his roof cement and paint maker in [place]. I am also discharging him on 5 more days of Levaquin and guaifenesin with codeine. 2. Atrial fibrillation with RVR versus atrial flutter. On admission, he was noted to be in AFib versus atrial flutter and required a Cardizem drip upon admission to the ICU. However, he did convert spontaneously back to normal sinus rhythm and remained in normal sinus rhythm throughout the remainder of his hospitalization. I suspect this was driven by his respiratory distress. His CHAD2-vasc score is zero, so he is not treated with anticoagulation. 3. History of Sjogren's disease. He was continued on Plaquenil. He should be considered moderately immunosuppressed due to Plaquenil. 4. Pre-exposure prophylaxis. He is continued on Truvada. 5. Disposition: Mr. Dickson is discharged to home on 07/20/2017 in fair condition with followup with his roof cement and paint maker in [place]. He is instructed to return to the emergency department with any fevers, worsening cough, chills, chest pain, palpitations, or shortness of breath. [id number]/[facility] #: [id number] [facility]
== END 2017-07-20 18:57 | disposition home or self-care (01) | DRG 140 ==
LOC: ED 11:50 → ICU 14:26 → MEDTELE 07-19 10:07
PROVIDERS: ADMIT Nurse Practitioner Family; ATTEND Internal Medicine
DX: J47.9 Bronchiectasis, uncomplicated (principal); I48.92 Unspecified atrial flutter; I48.91 Unspecified atrial fibrillation; K21.9 Gastro-esophageal reflux disease without esophagitis; M46.86 Other specified inflammatory spondylopathies, lumbar region; M35.00 Sjogren syndrome, unspecified; R19.7 Diarrhea, unspecified; K27.9 Peptic ulcer, site unspecified, unspecified as acute or chronic, without hemorrhage or perforation; F10.10 Alcohol abuse, uncomplicated; R03.0 Elevated blood-pressure reading, without diagnosis of hypertension; Y90.9 Presence of alcohol in blood, level not specified; Z80.9 Family history of malignant neoplasm, unspecified; Z84.89 Family history of other specified conditions
CPT/HCPCS: 36415; 71045; 71275; 74176; 80048; 80053; 81003; 81015; 82550; 82553; 82570; 83605; 83615; 83630; 83690; 83735; 83880; 84300; 84443; 84484; 85025; 85060; 85379; 85610; 85730; 86140; 86703; 87040; 87045; 87046; 87077; 87425; 87449; 87493; 87502; 87536; 87641; 87899; 93005; 94640; 94760; 99285; A9270-GY; J0456; J0696; J1644; J3475; J3490; J7512; Q9967

== ENCOUNTER 2019-03-04 17:17 | Emergency (ER) | payer SELFPAY ==
[2019-03-04 17:40] VITALS: BP 124/87
--- NOTE | 2019-03-04 17:42 | UC ---
Abdominal Pain Male HPI - HPI Summary HPI Summary: 53 year old male without insurance with known history of diverticulitis, about 2 -3 events, none since 10 years when patient started special diet, treated in the past with ABX, allergic to flagyl, presents with LLQ pain, no fever, chils, no N/ V, + diarrhea. Also reports coughing x h/o COPD. - History of Current Complaint Stated Complaint: LT SIDED ABD PAIN Time Seen by Provider: 03/04/19 17:32 - Allergies/Home Medications Allergies/Adverse Reactions: Allergies Allergy/AdvReac Type Severity Reaction Status Date / Time flagyl Allergy Nausea Uncoded 03/04/19 17:42 PMH/Surg Hx/FS Hx/Imm Hx Previously Healthy: No - copd, ho diverticulitis Respiratory History: COPD - Surgical History Surgical History: None Surgery Procedure, Year, and Place: Hernia repair 01/2017 - Family History Known Family History: Positive: Other - fibromyalgia and cancer - Social History Alcohol Use: Daily Alcohol Amount: 3-4 glasses of beer Substance Use Type: None Smoking Status (MU): Never Smoked Tobacco - Immunization History Most Recent Influenza Vaccination: 03/2017 Most Recent Pneumonia Vaccination: 03/2014 Review of Systems All Other Systems Reviewed And Are Negative: Yes Constitutional: Positive: Negative Respiratory: Positive: Shortness Of Breath, Cough Is Patient Immunocompromised?: No Physical Exam Triage Information Reviewed: Yes Appearance: Well-Appearing, Well-Nourished, Pain Distress - mild Vital Signs Reviewed: Yes Eyes: Positive: Conjunctiva Clear ENT: Positive: Pharynx normal Neck: Positive: Supple, Nontender, No Lymphadenopathy Respiratory: Positive: Chest non-tender, No respiratory distress, No accessory muscle use, Decreased breath sounds - b/l LL Cardiovascular: Positive: No Murmur Abdomen Description: Positive: No Organomegaly, Soft, Other: - TTP LLQ. Negative: CVA Tenderness (R), CVA Tenderness (L), Distended, Hepatomegaly, McBurney's Point Tenderness, Splenomegaly Bowel Sounds: Positive: Present Skin Exam: Normal Abd Pain Male Course/Dx - Course Course Of Treatment: Possible diverticulitis: - Patient was instructed that we recommended being seen at [facility]. However, due to lack on insurance, patient was reluctant to be seen. Antibiotic call in for patient with strict instructions that ANY worsening of his symptoms he needs to go directly to ER. Possible diverticulitis: - Patient was instructed that we recommended being seen at [facility]. However, due to lack on insurance, patient was reluctant to be seen. Antibiotic call in for patient with strict instructions that ANY worsening of his symptoms he needs to go directly to ER. - Augmentin three times daily x 10 days Outpatient diet Clear liquid diet until you can be reassessed in two to three days, after which their diet can be liberalized to soft or regular if you show improvement. Subsequent outpatient care Outpatients should be reassessed clinically two to three days after the initiation of antibiotic therapy and weekly thereafter until the resolution of all symptoms. May follow up at the [facility] in [facility] or follow up here. Call care connections for primary provider. - Call the hospital and ask for critical care technician to discuss insurance. - Differential Dx/Clinical Impression Differential Diagnosis/HQI/PQRI: Diverticulitis Provider Diagnosis: Diverticulitis Discharge ED - Sign-Out/Discharge Documenting (check all that apply): Patient Departure All imaging exams completed and their final reports reviewed: No Studies - Discharge Plan Condition: Fair Disposition: HOME Prescriptions: Amoxicillin/Clavulanate TAB* [Augmentin TAB 875*] 875 mg PO TID #30 tab Patient Education Materials: Acute Abdominal Pain (ED) Referrals: Linda Chadwick PA [Primary Care Provider] - [facility] [Outside] (Call for obtaining insurance. ) Additional Instructions: Possible diverticulitis: - Patient was instructed that we recommended being seen at [facility]. However, due to lack on insurance, patient was reluctant to be seen. Antibiotic call in for patient with strict instructions that ANY worsening of his symptoms he needs to go directly to ER. - Augmentin three times daily x 10 days Outpatient diet Clear liquid diet until you can be reassessed in two to three days, after which their diet can be liberalized to soft or regular if you show improvement. Subsequent outpatient care Outpatients should be reassessed clinically two to three days after the initiation of antibiotic therapy and weekly thereafter until the resolution of all symptoms. May follow up at the [facility] in [facility] in [facility] or follow up here. Call care connections for primary provider. - Call the hospital and ask for critical care technician to discuss insurance. - Billing Disposition and Condition Condition: FAIR Disposition: Home
[2019-03-04] MEDS ORDERED: Amoxicillin/Clavulanate TAB* 875 MG PO ONE (17:58)
== END 2019-03-04 18:18 | disposition home or self-care (01) ==
LOC: UCCORT 17:17
DX: K57.92 Diverticulitis of intestine, part unspecified, without perforation or abscess without bleeding (principal); R05 Cough; J44.9 Chronic obstructive pulmonary disease, unspecified; Z88.1 Allergy status to other antibiotic agents
CPT/HCPCS: 99212; A9270-GY; G0463